=== PATIENT | female | born 1980 | race Asian ===

== ENCOUNTER 2020-03-13 23:43 | Emergency (ER) | payer BC, SELFPAY ==
[2020-03-13 23:44] VITALS: BP 131/59; PULSE 74; RESP 16; TEMP 37.5; O2SAT 100; BMI 22.2
--- NOTE | 2020-03-14 00:18 | CT_ITS ---
EXAMINATION: CT ABDOMEN AND PELVIS WITHOUT CONTRAST CLINICAL INFORMATION: Periumbilical right lower quadrant pain COMPARISON: None TECHNIQUE: Multidetector volumetric imaging was performed from the superior aspect of the liver through the pubic symphysis. Sagittal and coronal reformatted images were obtained on the technologist's workstation. This CT examination was performed using dose optimization techniques as appropriate, variously including the following: *Automated exposure control *Adjustment of mA and/or kV according to patient size (this includes techniques or standardized protocols for targeted exams where dose is matched to indication/reason for exam; i.e. extremities or head) *Use of iterative reconstruction technique DLP: 292 mGy-cm FINDINGS: LUNG BASES: The visualized lung bases are unremarkable. LIVER, GALLBLADDER, AND BILIARY TREE: The liver is normal in size, shape, and attenuation. No focal hepatic lesion or biliary ductal dilatation is present. The gallbladder is unremarkable with no evidence of radiopaque gallstones, gallbladder wall thickening, or obvious pericholecystic inflammatory changes. PANCREAS: Unremarkable. SPLEEN: Unremarkable. ADRENAL GLANDS: Unremarkable. KIDNEYS AND URETERS: The kidneys are normal in size, shape, and attenuation. No hydronephrosis, hydroureter, or calculi seen. No perinephric stranding. BLADDER: Unremarkable. GASTROINTESTINAL TRACT: The small and large bowel are unremarkable. The appendix is unremarkable. No free fluid or free air is seen. ABDOMINAL WALL: No significant hernia is appreciated. LYMPH NODES: No lymphadenopathy is seen, though assessment is limited in the absence of intravenous contrast. VASCULAR: Unremarkable. PELVIC VISCERA: Unremarkable. OSSEOUS STRUCTURES: Degenerative disc disease is noted at L5-S1. IMPRESSION: No acute findings identified in the abdomen/pelvis. Normal appendix.
[2020-03-14 00:24] VITALS: BP 117/65; PULSE 74; RESP 18; TEMP 36.8; O2SAT 100
[2020-03-14] MEDS: 0.9 % Sodium Chloride 1,000 ML 999 ML IVCONT (00:38)
[2020-03-14] MEDS: Morphine Sulfate 4 MG/ML CARTRIDGE IVPUSH (00:38)
[2020-03-14] MEDS: ondansetron HCL 4 MG/2 ML VIAL IVPUSH (00:38)
[2020-03-14 00:45] LABS: MANUAL DIFF FLAG NO
[2020-03-14 00:49] LABS: Basophils Absolute Auto 0.1 X10*3/uL (0.0-0.2); Basophils Percent Auto 0.6 % (0-2); Eosinophils Absolute Auto 0.4 X10*3/uL (0.0-0.4); Eosinophils Percent Auto 4.9 % (0-4); Hematocrit 37.2 % (37-47); Hemoglobin 12.5 g/dl (12.0-16.0); Imm Gran Abs Auto 0.02 X10*3/uL (0.00-0.03); Imm Gran Pct Auto 0.3 % (0.0-0.4); Lymphocytes Absolute Auto 2.2 X10*3/uL (1.2-4.9); Lymphocytes Percent Auto 27.7 % (20-40); Mean Corpuscular HGB Conc 33.6 g/dl (31.0-35.0); Mean Corpuscular Hemoglobin 28.1 pg (27.0-33.0); Mean Corpuscular Volume 83.6 fL (80-98); Mean Platelet Volume 11.2 fL (9.4-12.3); Monocytes Absolute Auto 0.5 X10*3/uL (0.1-1.2); Monocytes Percent Auto 6.4 % (2-11); Neutrophils Absolute Auto 4.7 X10*3/uL (2.0-8.3); Neutrophils Percent Auto 60.1 % (45-73); Platelet Count 193 X10*3/uL (160-400); Red Blood Count 4.45 X10*6/uL (4.20-5.50); Red Cell Distribution Width 12.1 % (11.0-16.0); White Blood Count 7.8 X10*3/uL (4.8-10.8)
--- NOTE | 2020-03-14 01:10 | ED_ITS ---
HPI - Abdominal Pain General Chief Complaint: Abdominal Pain Stated Complaint: NAUSEA/VOMITING Time Seen by Provider: 03/14/20 00:11 Source: patient Mode of arrival: ambulatory Limitations: no limitations History of Present Illness HPI narrative: Patient comes to the emergency room complaining of abdominal pain. Patient states it started in the periumbilical area, now radiating towards the right lower quadrant. Patient states she has not been able to eat due to Pain and is not hungry either. Patient has had multiple episodes of diarrhea and nausea, no vomiting. Patient denies fever. Patient states it hu rts when she walks MD elicited complaint: abdominal pain Onset (ago): day(s) Pain Consistency: constant Location: periumbilical and RLQ Severity: severe Quality: aching Related Data Home Medications Medication Instructions Recorded Confirmed albuterol sulfate 2.5 mg INHALATION Q4-6H PRN 02/26/20 02/26/20 albuterol sulfate 90 mcg/actuation 2 puff INHALATION Q6H PRN 02/26/20 02/26/20 aerosol inhaler fluticasone propionate 250 1 inh INHALATION BID 02/26/20 02/26/20 mcg/actuation blister powder for inhalation ipratropium 0.5 mg-albuterol 3 mg 3 ml INHALATION Q6-8H PRN 02/26/20 02/26/20 (2.5 mg base)/3 mL nebulization soln norethindrone (contraceptive) 0.35 0.35 mg PO DAILY 02/26/20 02/26/20 mg tablet omeprazole 40 mg capsule,delayed 40 mg PO DAILY 02/26/20 02/26/20 release tramadol 50 mg tablet 50 mg PO TID PRN 02/26/20 02/26/20 Allergies Allergy/AdvReac Type Severity Reaction Status Date / Time acetaminophen [Tylenol] Allergy Unknown Unknown Verified 03/13/20 23:54 amoxicillin Allergy Unknown Unknown Verified 03/13/20 23:54 ibuprofen [Advil] Allergy Unknown Unknown Verified 03/13/20 23:54 paroxetine [Paxil] Allergy Unknown Unknown Verified 03/13/20 23:54 Review of Systems Review of Systems Constitutional : No Weight loss, No Fever, No Chills, No Night Sweats, No Fatigue, No Malaise ENT/Mouth : No Hearing loss, No Ear Pain, No Nasal Congestion, No Sinus Pain, No Hoarseness, No sore throat, No Rhinorrhea, No Swallowing Difficulty Eyes: No Eye Pain, No Swelling, No Redness, No Foreign Body, No Discharge, No Vision Changes Cardiovascular : No Chest Pain, No SOB, No Dyspnea on Exertion, No Orthopnea, No Edema, No Palpitations Respiratory : No Cough, No Sputum, No Wheezing, No Smoke Exposure, No Dyspnea Gastrointestinal : complaining of nausea, diarrhea, periumbilical and right lower quadrant pain. Denies vomiting Genitourinary : no irregular bleeding, No Dysuria, No Urinary Frequency, No Hematuria, No Urinary Incontinence, No Urgency, No Flank Pain, No Urinary Flow Changes, No Hesitancy Musculoskeletal : No joint pain, No Myalgias, No Joint Swelling Skin : No Skin Lesions, No rash Neuro : No Weakness, No Numbness, No Paresthesias, No Loss of Consciousness, No Dizziness, No Headache Psych : No Anxiety/Panic, No Depression, No SI/HI/AH/VH, No Social Issues, Heme/Lymph: No Bruising, No Bleeding,No Lymphadenopathy Endocrine : No Polyuria, No Polydipsia, No Temperature Intolerance Physical Exam Vital Signs: Vital Signs: Vital Signs Temp Pulse Resp BP Pulse Ox 03/14/20 00:24 98.3 F 74 18 117/65 100 03/13/20 23:44 99.5 F 74 16 131/59 L 100 Body Mass Index 22.2 Appearance: Alert. Oriented X3. No acute distress. Eyes: Pupils equal, round and reactive to light. ENT: Pharynx normal. Neck: Normal inspection. Neck supple. No lymph nodes noted. No crepitus CVS: Normal heart rate and rhythm. Pulses normal. Normal S1 and S2 Respiratory: No respiratory distress. Breath sounds normal. No Wheezing. No rales Abdomen: Soft tender to palpation over the right lower quadrant periumbilical area, No rigidity. No distention. good BS x4 Skin: Skin warm and dry. Normal skin color. Normal skin turgor. Extremities: No lower extremity edema. No lower extremity edema. No Lacerations. No Rash Neuro: Oriented X 3. No motor deficit. No sensory deficit. Moving all extermities. No slurred speech. Course Reevaluation(s) Reevaluation #1: patient overall feeling better, patient abdominal pain minor, patient able to walk better without significant pain. No vomiting no nausea or diarrhea. MDM - Abdominal Pain MDM Narrative Medical decision making narrative: I discussed the labs and imaging with the patient, at this time, appendicitis is not suspected Lab Data Result diagrams: 03/14/20 00:03/14/20 00:26 Labs: Lab Results 03/14/20 03/14/20 03/14/20 Range/Units 00: 00:26 00:26 WBC 7.8 (4.8-10.8) X10*3/uL RBC 4.45 (4.20-5.50) X10*6/uL Hgb 12.5 (12.0-16.0) g/dl Hct 37.2 (37-47) % MCV 83.6 (80-98) fL MCH 28.1 (27.0-33.0) pg MCHC 33.6 (31.0-35.0) g/dl RDW 12.1 (11.0-16.0) % Plt Count 193 (160-400) X10*3/uL MPV 11.2 (9.4-12.3) fL Immature Gran % (Auto) 0.3 (0.0-0.4) % Neut % (Auto) 60.1 (45-73) % Lymph % (Auto) 27.7 (20-40) % [place] % (Auto) 6.4 (2-11) % Eos % (Auto) 4.9 H (0-4) % Baso % (Auto) 0.6 (0-2) % Lymph # (Auto) 2.2 (1.2-4.9) X10*3/uL [place]ole # (Auto) 0.5 (0.1-1.2) X10*3/uL Eos # (Auto) 0.4 (0.0-0.4) X10*3/uL Baso # (Auto) 0.1 (0.0-0.2) X10*3/uL Abs Immat Gran (auto) 0.02 (0.00-0.03) X10*3/uL Absolute Neuts (auto) 4.7 (2.0-8.3) X10*3/uL Absolute Nucleated RBC 0.000 (0.0-0.012) X10*3/uL Nucleated RBC % (auto) 0.0 (0.0-0.2) /100WBC Sodium 141 (135-145) mmol/L Potassium 3.9 (3.3-5.1) mmol/l Chloride 109 H (96-108) mmol/L Carbon Dioxide 24 (22-29) mmol/L Anion Gap 12 (12-20) BUN 15 (9-16) mg/dL Creatinine 0.86 (0.5-1.4) mg/dL Estim Creat Clear Calc 61.8 Estimated GFR > 60 Random Glucose 82 (60-115) mg/dL Calcium 8.8 (8.4-10.2) mg/dL Total Bilirubin 0.2 (0.0-1.0) mg/dL Direct Bilirubin < 0.2 (0.0-0.5) mg/dL AST 14 (5-31) U/L ALT 8 (0-31) U/L Alkaline Phosphatase 56 (39-117) U/L Total Protein 6.5 (6.5-8.0) g/dL Albumin 4.1 (3.5-5.0) g/dL Lipase 19 (8-78) U/L Beta HCG, Quant < 2 mIU/mL Urine Color Urine Appearance Urine pH (5.0-8.0) Ur Specific [place] (1.005-1.025) Urine Protein (NEG-TRACE) MG/DL Urine Glucose (UA) (NEG) MG/DL Urine Ketones (NEG) MG/DL Urine Blood (NEG) Urine Nitrite (NEG) Ur Leukocyte Esterase (NEG) 03/14/20 Range/Units 01:18 WBC (4.8-10.8) X10*3/uL RBC (4.20-5.50) X10*6/uL Hgb (12.0-16.0) g/dl Hct (37-47) % MCV (80-98) fL MCH (27.0-33.0) pg MCHC (31.0-35.0) g/dl RDW (11.0-16.0) % Plt Count (160-400) X10*3/uL MPV (9.4-12.3) fL Immature Gran % (Auto) (0.0-0.4) % Neut % (Auto) (45-73) % Lymph % (Auto) (20-40) % Toole % (Auto) (2-11) % Eos % (Auto) (0-4) % Baso % (Auto) (0-2) % Lymph # (Auto) (1.2-4.9) X10*3/uL [place]ole # (Auto) (0.1-1.2) X10*3/uL Eos # (Auto) (0.0-0.4) X10*3/uL Baso # (Auto) (0.0-0.2) X10*3/uL Abs Immat Gran (auto) (0.00-0.03) X10*3/uL Absolute Neuts (auto) (2.0-8.3) X10*3/uL Absolute Nucleated RBC (0.0-0.012) X10*3/uL Nucleated RBC % (auto) (0.0-0.2) /100WBC Sodium (135-145) mmol/L Potassium (3.3-5.1) mmol/l Chloride (96-108) mmol/L Carbon Dioxide (22-29) mmol/L Anion Gap (12-20) BUN (9-16) mg/dL Creatinine (0.5-1.4) mg/dL Estim Creat Clear Calc Estimated GFR Random Glucose (60-115) mg/dL Calcium (8.4-10.2) mg/dL Total Bilirubin (0.0-1.0) mg/dL Direct Bilirubin (0.0-0.5) mg/dL AST (5-31) U/L ALT (0-31) U/L Alkaline Phosphatase (39-117) U/L Total Protein (6.5-8.0) g/dL Albumin (3.5-5.0) g/dL Lipase (8-78) U/L Beta HCG, Quant mIU/mL Urine Color YELLOW Urine Appearance CLEAR Urine pH 5.5 (5.0-8.0) Ur Specific [place] >= 1.030 H (1.005-1.025) Urine Protein NEG (NEG-TRACE) MG/DL Urine Glucose (UA) NEG (NEG) MG/DL Urine Ketones NEG (NEG) MG/DL Urine Blood NEG (NEG) Urine Nitrite NEG (NEG) Ur Leukocyte Esterase NEG (NEG) Imaging Data CT scan - abdomen: Radiologist's impression: KIDNEYS AND URETERS: The kidneys are normal in size, shape, and attenuation. No hydronephrosis, hydroureter, or calculi seen. No perinephric stranding. BLADDER: Unremarkable. GASTROINTESTINAL TRACT: The small and large bowel are unremarkable. The appendix is unremarkable. No free fluid or free air is seen. ABDOMINAL WALL: No significant hernia is appreciated. LYMPH NODES: No lymphadenopathy is seen, though assessment is limited in the absence of intravenous contrast. Discharge Plan Discharge Clinical Impression: Abdominal pain Qualifiers: Abdominal location: right lower quadrant Qualified Code(s): R10.31 - Right lower quadrant pain Patient Disposition: Home, Self-Care Instructions: Jose Gz (ED), Abdominal Pain (ED) Additional Instructions: if you have any worsening pain, any new symptoms, please return to emergency room or call 911. Prescriptions: No Action Flovent Diskus 250 mcg/actuation blister with device 1 inh inhalation BID RF: 0 albuterol sulfate [Ventolin HFA] 90 mcg/actuation HFA aerosol inhaler 2 puff inhalation Q6H PRNRF: 0 albuterol sulfate 2.5 mg /3 mL (0.083 %) solution for nebulization 2.5 mg inhalation Q4-6H PRNRF: 0 omeprazole 40 mg capsule,delayed release(DR/EC) 40 mg PO DAILY RF: 0 tramadol 50 mg tablet 50 mg PO TID PRNRF: 0 ipratropium-albuterol 0.5 mg-3 mg(2.5 mg base)/3 mL solution for nebulization 3 ml inhalation Q6-8H PRNRF: 0 norethindrone (contraceptive) [Ortho Micronor] 0.35 mg tablet 0.35 mg PO DAILY RF: 0 PMFSH Past Medical History Medical History Asthma IBS (irritable bowel syndrome) Migraines Social History Social History Alcohol intake: never Smoked in Last 30 Days: No Use of substances other than those prescribed or required for medical reasons: No Advance Directives: No Advance Directives Information Provided: No
[2020-03-14 01:11] LABS: Anion Gap 12 (12-20); Blood Urea Nitrogen 15 mg/dL (9-16); Calcium 8.8 mg/dL (8.4-10.2); Carbon Dioxide 24 mmol/L (22-29); Chloride 109 mmol/L (96-108); Creatinine Clr Calc Pharmacy 61.8; Estimated Glomerular Filt Rate > 60; Glucose Random 82 mg/dL (60-115); Potassium 3.9 mmol/l (3.3-5.1); Sodium 141 mmol/L (135-145)
[2020-03-14 01:12] LABS: Alanine Aminotransferase 8 U/L (0-31); Albumin Level 4.1 g/dL (3.5-5.0); Alkaline Phosphatase 56 U/L (39-117); Aspartate Amino Transferase 14 U/L (5-31); Bilirubin Direct < 0.2 mg/dL (0.0-0.5); Bilirubin Total 0.2 mg/dL (0.0-1.0); Lipase 19 U/L (8-78); Total Protein 6.5 g/dL (6.5-8.0)
[2020-03-14 01:18] LABS: HCG Quantitative < 2 mIU/mL
[2020-03-14 01:31] LABS: Glucose Urine UA NEG (NEG); Leukocyte Esterase Urine NEG (NEG); Nitrite Urine NEG (NEG); PH 5.5 (5.0-8.0); Specific Gravity - Urine >= 1.030 (1.005-1.025); Urine Blood NEG (NEG); Urine Ketones NEG (NEG); Urine Protein NEG (NEG-TRACE)
[2020-03-14 01:33] LABS: Appearance Urine CLEAR; Color Urine YELLOW
[2020-03-14] MEDS: HYDROmorphone HCl 1 MG/ML SYRINGE IVPUSH (02:18)
[2020-03-14 02:53] VITALS: BP 123/77; PULSE 80; RESP 16
== END 2020-03-14 03:06 | disposition home or self-care (01) ==
PROVIDERS: Emergency Provider Emergency Medicine; PCP Nurse Practitioner Family
DX: R10.31 Right lower quadrant pain (principal); Z79.899 Other long term (current) drug therapy
CPT/HCPCS: 36415; 74176; 80048; 80076; 81003; 83690; 84702; 85025; 96361; 96374; 96375; 99284; J1170; J2270; J2405

== ENCOUNTER 2020-03-25 14:33 | Emergency (ER) | payer BC, MEDICAID, SELFPAY ==
[2020-03-25 15:27] VITALS: BP 120/73; PULSE 88; RESP 16; TEMP 37.1; O2SAT 98; BMI 22.4
--- NOTE | 2020-03-25 15:45 | ECG_ITS ---
Test Reason : SOB Blood Pressure : / mmHG Vent. Rate : 114 BPM Atrial Rate : 114 BPM P-R Int : 112 ms QRS Dur : 086 ms QT Int : 342 ms P-R-T Axes : 082 076 036 degrees QTc Int : [address] depression in Inferior leads Lateral leads Abnormal ECG No previous ECGs available Referred By: Chalo Heck Electronically Signed By:BÁRBARA DEXTER MD
--- NOTE | 2020-03-25 15:45 | XR_ITS ---
EXAMINATION: XR CHEST CLINICAL INFORMATION: Shortness of breath COMPARISON: None TECHNIQUE: 2 views of the chest were obtained. FINDINGS: No significant abnormality is noted involving the heart, lungs, mediastinum, bony thorax or soft tissues. XR/XR chest 2V IMPRESSION: Unremarkable examination.
--- NOTE | 2020-03-25 15:45 | US_ITS ---
EXAMINATION: US VENOUS ULTRASOUND WITH DOPPLER LOWER EXTREMITY, LEFT CLINICAL INFORMATION: Left lower extremity pain COMPARISON: None TECHNIQUE: Ultrasound of the deep veins is performed from the hip to the calf with compression sonography and color and pulse Doppler assessment. Spectral analysis with color-flow imaging is performed. FINDINGS: There is normal venous compression and respiratory variation and augmented flow. The visualized common femoral vein, superficial femoral vein, profunda femoral vein, popliteal vein, and the trifurcation region shows no evidence of deep venous thrombosis. There is no significant popliteal fossa cyst. If the patient's symptoms persist, followup ultrasound in 5 days 7 days might be of value to exclude proximal propagation from a non-visualized calf vein. US/US venous duplex LE LT IMPRESSION: No DVT demonstrated in the left lower extremity.
--- NOTE | 2020-03-25 15:51 | ED.ASTHMA ---
HPI - Asthma General Chief Complaint: Asthma Stated Complaint: RAPID HEART BEAT SOB CHEST PAIN Time Seen by Provider: 03/25/20 15:45 History of Present Illness HPI Narrative: 40 year old woman comes into the ER today with shortness of breath, palpitations and LEFT LE posterior pain. Does have a h/o Asthma, has nebulizer at home, has been doing her own treatments, not working. Noticed today when she stood up that her left LE was hurting, has worsened throughout the day, now with worsening pain with ambulation. Denies N/V/F/C, DENIES any Covid-19 exposure complaint: shortness of breath and wheezing Onset (ago): day(s) (1-2) Severity: moderate Context: none known Associated symptoms: chest pain and other (Palpitations, left lower extremity pain) Asthma History: childhood onset Treatments Prior to Arrival: inhaled bronchodilator Related Data Current Asthma Therapy: inhaled bronchodilator and other (has home nebulizer) Home Medications Medication Instructions Recorded Confirmed albuterol sulfate 2.5 mg INHALATION Q4-6H PRN 02/26/20 02/26/20 albuterol sulfate 90 mcg/actuation 2 puff INHALATION Q6H PRN 02/26/20 02/26/20 aerosol inhaler fluticasone propionate 250 1 inh INHALATION BID 02/26/20 02/26/20 mcg/actuation blister powder for inhalation ipratropium 0.5 mg-albuterol 3 mg 3 ml INHALATION Q6-8H PRN 02/26/20 02/26/20 (2.5 mg base)/3 mL nebulization soln norethindrone (contraceptive) 0.35 0.35 mg PO DAILY 02/26/20 02/26/20 mg tablet omeprazole 40 mg capsule,delayed 40 mg PO DAILY 02/26/20 02/26/20 release tramadol 50 mg tablet 50 mg PO TID PRN 02/26/20 02/26/20 Allergies Allergy/AdvReac Type Severity Reaction Status Date / Time acetaminophen [Tylenol] Allergy Unknown Unknown Verified 03/13/20 23:54 amoxicillin Allergy Unknown Unknown Verified 03/13/20 23:54 ibuprofen [Advil] Allergy Unknown Unknown Verified 03/13/20 23:54 paroxetine [Paxil] Allergy Unknown Unknown Verified 03/13/20 23:54 Review of Systems Constitutional: Constitutional: Denies body ache(s), Denies chills, Reports fatigue, Denies fever(s), Denies frequent falls, Denies headache(s), Denies malaise and Denies weakness Eyes: Eyes: Denies change in vision, Denies itchy eyes, Denies other visual disturbances, Denies eye pain and Denies requires corrective lenses ENT: Reports Normal hearing present, Denies halitosis, Denies change in voice, Denies dental pain, Denies dysphagia, Denies dizziness, Denies headache(s), Denies hearing loss, Denies nasal discharge, Reports neck mass (FIRM MASS NOTED UNDER RIGHT EAR AT TMJ, TENDER TO PALPATION. NO ERYTHEMA), Reports neck pain, Denies sinus pressure, Denies sore throat and Denies throat swelling Cardiovascular: Cardiovascular: Denies chest pain, Denies Epigastric Pain, Denies syncope, Denies leg edema, Denies lightheadedness, Reports dyspnea, Reports dyspnea on exertion and Reports other (palipiatations, racing heart ) Respiratory: Respiratory: Denies chest congestion, Reports cough, Reports dyspnea, Reports dyspnea on exertion and Reports wheezing Gastrointestinal: Gastrointestinal: Denies abdominal pain, Denies change in bowel habits, Denies constipation, Denies dysphagia, Denies diarrhea, Denies nausea and Denies vomiting Genitourinary: Genitourinary: Denies urinary frequency, Denies dysuria, Denies flank pain and Denies urinary incontinence Musculoskeletal: Musculoskeletal: Denies abnormal gait, Denies back pain, Denies myalgias, Denies deformity, Denies arthralgias, Denies muscle weakness, Reports neck pain, Denies stiffness and Denies tingling Integumentary/Breasts: Skin/Breast: Denies swelling, Denies pruritus, Denies lesions, Denies nail changes, Denies erythema, Denies rash, Denies sores and Denies unusual bruising Neurologic: Reports Normal hearing present, Reports Abnormal speech present, Denies abnormal gait, Denies dizziness, Denies syncope, Denies frequent falls, Denies headache(s), Denies memory loss, Denies tingling and Denies weakness Psychiatric: Psychiatric: Denies anxiety, Denies depression, Denies irritability and Denies memory loss Endocrine: Endocrine: Reports fatigue Hematologic/Lymphatic: Hematologic/Lymphatic: Denies easy bleeding, Denies easy bruising and Denies lymphadenopathy Allergic/Immunologic: Allergic/Immunologic: Denies itchy eyes, Denies throat swelling and Reports wheezing [facility] Past Medical History Medical History Asthma 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 Esophageal dilatation IBS (irritable bowel syndrome) Migraines Surgical History H/O dilation and curettage H/O shoulder surgery Social History Social History Alcohol intake: never Advance Directives: No Advance Directives Information Provided: No Physical Exam Vital Signs: Vital Signs: Vital Signs Temp Pulse Resp BP Pulse Ox 03/25/20 18:08 96 142/73 H 03/25/20 17:39 98.2 F 102 H 18 119/73 100 03/25/20 15:27 98.7 F 88 16 120/73 98 Body Mass Index 22.4 Const: General: cooperative, healthy appearing, comfortable, no acute distress, well developed, alert, awake and well groomed Nutritional Appearance: average body habitus Orientation/consciousness: patient oriented x3 Limitations: no limitations HENMT: Head: Yes normal to inspection Ears: hearing grossly normal bilaterally, external ears normal, TM's normal bilaterally, mastoids normal and other (FROM MASS NOTED AT TMJ AREA, TENDER TO PALPATION. NO ERYTHEMA, NO DRAINAGE) Eyes: General: appearance normal, both eyes and all related structures Neck: Neck: Yes normal visual inspection, Yes full ROM, Yes no lymphadenopathy, Yes no meningeal signs, Yes trachea midline and Yes supple Thyroid: Thyroid normal Lymphatic: no lymphadenopathy noted Chest: Chest palpation & inspection: normal inspection of the chest and normal palpation of entire chest wall Resp: Effort & Inspection: normal respiratory effort, able to speak in complete sentences, Actively coughing and respiratory distress Auscultation: clear to auscultation bilaterally and wheezes expiratory wheezes, upper bilaterally and posterior Cardio: Rate: regular rate Rhythm: regular rhythm GI: Inspection: Yes normal to inspection : General: Yes no CVA tenderness Back/Spine/Pelvis: Back: no CVA tenderness Cervical Spine: normal cervical lordosis and cervical ROM normal Thoracic/Lumbar Spine: thoracic and lumbar spine normal to inspection Skin: General skin exam: no rashes or lesions noted Lesions: no lesions Rashes: no rashes Neuro: General: patient oriented x3 and no meningeal signs Cranial nerves: Yes Normal hearing present Cognition (Neuro): normal cognition Speech: Abnormal speech present Gait exam (Neuro): Normal gait present Motor exam (neuro): 5/5 motor strength present throughout Sensory Exam: Normal double simultaneous stimulation for sensation Extrem: General: Yes normal to inspection, Yes no pedal edema and Yes calf tenderness (lLEFT Posterior) Psych: Appearance: grossly normal Mental Status: mental status grossly normal Speech and movement: Normal speech and movement present Affect: normal affect Attitude: cooperative Thought process: Normal thought process present Thought content: Normal thought content present Insight: Good insight present (Psych) Judgement: Good judgement present (Psych) Course Course Course Narrative: Evaluated for Shortness of breath, left LE posterior pain and racing heart. No COVID-19 exposure, no significant cough, no fevers. Reevaluation(s) Time: 18:21 Reevaluation #2: CXR, Doppler US and Labs all normal. Reassurance provided. Resp TX pending. Will give Clonidine and prednisone to see if anxiety and chest tightness can be alleviated. MDM - Asthma Lab Data Result diagrams: 03/25/20 16:28 03/25/20 16:28 Labs: Lab Results 03/25/20 03/25/20 03/25/20 Range/Units 16:28 16:28 16:28 WBC 9.9 (4.8-10.8) X10*3/uL RBC 4.28 (4.20-5.50) X10*6/uL Hgb 12.0 (12.0-16.0) g/dl Hct 35.7 L (37-47) % MCV 83.4 (80-98) fL MCH 28.0 (27.0-33.0) pg MCHC 33.6 (31.0-35.0) g/dl RDW 12.2 (11.0-16.0) % Plt Count 242 D (160-400) X10*3/uL MPV 10.7 (9.4-12.3) fL Immature Gran % (Auto) 0.3 (0.0-0.4) % Neut % (Auto) 82.9 H (45-73) % Lymph % (Auto) 11.7 L (20-40) % Baker % (Auto) 4.8 (2-11) % Eos % (Auto) 0.1 (0-4) % Baso % (Auto) 0.2 (0-2) % Lymph # (Auto) 1.2 (1.2-4.9) X10*3/uL Baker # (Auto) 0.5 (0.1-1.2) X10*3/uL Eos # (Auto) 0.0 (0.0-0.4) X10*3/uL Baso # (Auto) 0.0 (0.0-0.2) X10*3/uL Abs Immat Gran (auto) 0.03 (0.00-0.03) X10*3/uL Absolute Neuts (auto) 8.2 (2.0-8.3) X10*3/uL Absolute Nucleated RBC 0.000 (0.0-0.012) X10*3/uL Nucleated RBC % (auto) 0.0 (0.0-0.2) /100WBC PT 14.1 H (10.8-13.0) SEC INR 1.2 H (0.9-1.1) Sodium 139 (135-145) mmol/L Potassium 4.1 (3.3-5.1) mmol/l Chloride 107 (96-108) mmol/L Carbon Dioxide 24 (22-29) mmol/L Anion Gap 12 (12-20) BUN 17 H (9-16) mg/dL Creatinine 0.78 (0.5-1.4) mg/dL Estim Creat Clear Calc 68.2 Estimated GFR > 60 Random Glucose 102 (60-115) mg/dL Calcium 8.4 (8.4-10.2) mg/dL Imaging Data [address] [address] Ultrasound Report Signed Patient: Deanna Vargas#: [id number] : 1980Acct:[id number] Age/Sex: 40 / FADM Date: 03/25/20 Loc: .ED Attending Dr: Ordering Physician: BIRD MARIE Date of Service: 03/25/20 Procedure(s): US venous duplex LE LT Accession Number(s): [id number] cc: BIRD MARIE~ EXAMINATION: US VENOUS ULTRASOUND WITH DOPPLER LOWER EXTREMITY, LEFT CLINICAL INFORMATION: Left lower extremity pain COMPARISON: None TECHNIQUE: Ultrasound of the deep veins is performed from the hip to the calf with compression sonography and color and pulse Doppler assessment. Spectral analysis with color-flow imaging is performed. FINDINGS: There is normal venous compression and respiratory variation and augmented flow. The visualized common femoral vein, superficial femoral vein, profunda femoral vein, popliteal vein, and the trifurcation region shows no evidence of deep venous thrombosis. There is no significant popliteal fossa cyst. If the patient's symptoms persist, followup ultrasound in 5 days 7 days might be of value to exclude proximal propagation from a non-visualized calf vein. US/US venous duplex LE LT IMPRESSION: No DVT demonstrated in the left lower extremity. 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 NO DVT ECG Data ECG interpretation date: 03/25/20 ECG interpretation time: 16:50 Discharge Plan Discharge Clinical Impression: Asthma with acute exacerbation Patient Disposition: Home, Self-Care Additional Instructions: Rest, no exertion fo0r 2-3 days Continue to use home nebulizer Follow up with your PCP in 3-5 days is still not feeling well Tyl and or IBU for any discomfort Prescriptions: No Action Flovent Diskus 250 mcg/actuation blister with device 1 inh inhalation BID RF: 0 albuterol sulfate [Ventolin HFA] 90 mcg/actuation HFA aerosol inhaler 2 puff inhalation Q6H PRNRF: 0 albuterol sulfate 2.5 mg /3 mL (0.083 %) solution for nebulization 2.5 mg inhalation Q4-6H PRNRF: 0 omeprazole 40 mg capsule,delayed release(DR/EC) 40 mg PO DAILY RF: 0 tramadol 50 mg tablet 50 mg PO TID PRNRF: 0 ipratropium-albuterol 0.5 mg-3 mg(2.5 mg base)/3 mL solution for nebulization 3 ml inhalation Q6-8H PRNRF: 0 norethindrone (contraceptive) [Ortho Micronor] 0.35 mg tablet 0.35 mg PO DAILY RF: 0 Interventions: ED Discharge Assessment Last Done: 03/25/20 18:47 Discharge Date/Time: 03/25/20 18:48
--- NOTE | 2020-03-25 16:01 | PC.NURSE ---
pt taken to us via wheelchair
[2020-03-25] MEDS: Albuterol/Iprat 2.5/0.5MG 3 ML AMPUL.NEB INHALE (16:22)
[2020-03-25 16:43] LABS: MANUAL DIFF FLAG NO
[2020-03-25 16:44] LABS: Basophils Percent Auto 0.2 % (0-2); Eosinophils Percent Auto 0.1 % (0-4); Hematocrit 35.7 % (37-47); Imm Gran Abs Auto 0.03 X10*3/uL (0.00-0.03); Imm Gran Pct Auto 0.3 % (0.0-0.4); Lymphocytes Absolute Auto 1.2 X10*3/uL (1.2-4.9); Lymphocytes Percent Auto 11.7 % (20-40); Mean Corpuscular HGB Conc 33.6 g/dl (31.0-35.0); Mean Corpuscular Volume 83.4 fL (80-98); Mean Platelet Volume 10.7 fL (9.4-12.3); Monocytes Absolute Auto 0.5 X10*3/uL (0.1-1.2); Monocytes Percent Auto 4.8 % (2-11); Neutrophils Absolute Auto 8.2 X10*3/uL (2.0-8.3); Neutrophils Percent Auto 82.9 % (45-73); Platelet Count 242 X10*3/uL (160-400); Red Blood Count 4.28 X10*6/uL (4.20-5.50); Red Cell Distribution Width 12.2 % (11.0-16.0); White Blood Count 9.9 X10*3/uL (4.8-10.8)
[2020-03-25 16:49] LABS: INTERNATIONAL NORM RATIO 1.2 (0.9-1.1); Prothrombin Time 14.1 SEC (10.8-13.0)
[2020-03-25 17:19] LABS: Anion Gap 12 (12-20); Blood Urea Nitrogen 17 mg/dL (9-16); Calcium 8.4 mg/dL (8.4-10.2); Carbon Dioxide 24 mmol/L (22-29); Chloride 107 mmol/L (96-108); Creatinine Clr Calc Pharmacy 68.2; Estimated Glomerular Filt Rate > 60; Glucose Random 102 mg/dL (60-115); Potassium 4.1 mmol/l (3.3-5.1); Sodium 139 mmol/L (135-145)
[2020-03-25 17:39] VITALS: BP 119/73; PULSE 102; RESP 18; TEMP 36.8; O2SAT 100
[2020-03-25] MEDS: predniSONE 20 MG TABLET 60 MG PO (17:50)
[2020-03-25 18:08] VITALS: BP 142/73; PULSE 96
[2020-03-25] MEDS: cloNIDine HCL 0.1 MG TABLET PO (18:08)
[2020-03-25 19:13] LABS: Amphetamine Screen Urine Not Detected (Not Detect); Barbiturates, Urine Not Detected (Not Detect); Benzodiazepines Screen Urine POSITIVE (Not Detect); Cannabinoid Screen Urine Not Detected (Not Detect); Cocaine Screen Urine Not Detected (Not Detect); Opiate Screen Urine Not Detected (Not Detect); Phencyclidine Screen Urine Not Detected (Not Detect)
== END 2020-03-25 18:48 | disposition home or self-care (01) ==
PROVIDERS: Physician Assistant Medical; Emergency Provider Emergency Medicine; PCP Nurse Practitioner Family
DX: J45.901 Unspecified asthma with (acute) exacerbation (principal); R00.2 Palpitations; R60.0 Localized edema; M79.662 Pain in left lower leg; M79.661 Pain in right lower leg; Z79.899 Other long term (current) drug therapy; Z20.828 Contact with and (suspected) exposure to other viral communicable diseases
CPT/HCPCS: 36415; 71046; 80048; 80307; 85025; 85610; 93005; 93971; 99283; 99284

== ENCOUNTER 2020-04-07 18:33 | Observation (INO) | payer BC, SELFPAY ==
[2020-04-07 18:47] VITALS: BP 132/73; PULSE 120; RESP 24; TEMP 36.9; O2SAT 100; BMI 24.3
--- NOTE | 2020-04-07 19:09 | XR_ITS ---
EXAMINATION: XR CHEST CLINICAL INFORMATION: Shortness of breath COMPARISON: 03/25/2020 TECHNIQUE: Frontal view of the chest was obtained. FINDINGS: No significant abnormality is noted involving the heart, lungs, mediastinum, bony thorax or soft tissues. XR/XR chest 1V IMPRESSION: Unremarkable examination.
--- NOTE | 2020-04-07 19:09 | ECG_ITS ---
Test Reason : UPPER RES Blood Pressure : / mmHG Vent. Rate : 131 BPM Atrial Rate : 131 BPM P-R Int : 088 ms QRS Dur : 082 ms QT Int : 334 ms P-R-T Axes : 055 070 052 degrees QTc Int : 493 ms Sinus tachycardia with short IL Nonspecific ST abnormality RSR' or QR pattern in V1 suggests right ventricular conduction delay Abnormal ECG When compared with ECG of 25-MAR-2020 16:50, Nonspecific T wave abnormality has replaced inverted T waves in Inferior leads T wave inversion less evident in Anterior leads Referred By: Laura Green Electronically Signed By:BÁRBARA DEXTER MD
[2020-04-07] MEDS: Magnesium Sulfate/H2O 2 GM/50 ML PIGGYBACK IV (19:37)
[2020-04-07] MEDS: 0.9 % Sodium Chloride 500 ML 999 ML IVCONT (19:37)
[2020-04-07] MEDS: methylPREDNISolone Sod Succ/PF 125 MG/2 ML VIAL IVPUSH (19:37)
[2020-04-07 19:42] LABS: MANUAL DIFF FLAG NO
[2020-04-07 19:53] LABS: Basophils Percent Auto 0.6 % (0-2); Eosinophils Absolute Auto 0.2 X10*3/uL (0.0-0.4); Eosinophils Percent Auto 2.6 % (0-4); Hematocrit 37.3 % (37-47); Hemoglobin 12.7 g/dl (12.0-16.0); Imm Gran Abs Auto 0.01 X10*3/uL (0.00-0.03); Imm Gran Pct Auto 0.1 % (0.0-0.4); Lymphocytes Absolute Auto 1.8 X10*3/uL (1.2-4.9); Lymphocytes Percent Auto 25.3 % (20-40); Mean Corpuscular Hemoglobin 28.8 pg (27.0-33.0); Mean Corpuscular Volume 84.6 fL (80-98); Mean Platelet Volume 11.2 fL (9.4-12.3); Monocytes Absolute Auto 0.4 X10*3/uL (0.1-1.2); Neutrophils Absolute Auto 4.8 X10*3/uL (2.0-8.3); Neutrophils Percent Auto 66.4 % (45-73); Platelet Count 197 X10*3/uL (160-400); Red Blood Count 4.41 X10*6/uL (4.20-5.50); Red Cell Distribution Width 12.8 % (11.0-16.0); White Blood Count 7.3 X10*3/uL (4.8-10.8)
[2020-04-07 20:01] LABS: Anion Gap 16 (12-20); Blood Urea Nitrogen 17 mg/dL (9-16); Calcium 8.9 mg/dL (8.4-10.2); Carbon Dioxide 21 mmol/L (22-29); Chloride 108 mmol/L (96-108); Creatinine Clr Calc Pharmacy 62.7; Estimated Glomerular Filt Rate > 60; Glucose Random 106 mg/dL (60-115); Potassium 3.3 mmol/l (3.3-5.1); Sodium 142 mmol/L (135-145)
[2020-04-07] MEDS: Albuterol Sulfate (0.083%) 2.5 MG/3 ML VIAL.NEB 10 MG INHALE (20:06)
[2020-04-07 20:16] LABS: Troponin-I High Sensitivity < 3.5 ng/L (<3.5-17.0)
[2020-04-07 20:17] VITALS: BP 117/50; PULSE 124; RESP 24; RESP 25; O2SAT 100
[2020-04-07] MEDS: 0.9 % Sodium Chloride 1,000 ML 999 ML IVCONT (21:55)
[2020-04-07] MEDS: guaiFEN/Codeine SF 200/20/10ML 10 ML LIQUID PO (21:59)
[2020-04-07] MEDS: Lidocaine HCl Viscous 2 % 15 ML SOLUTION MUCOUS MEM (22:00)
[2020-04-07] MEDS: Albuterol Sulfate (0.083%) 2.5 MG/3 ML VIAL.NEB 5 MG INHALE (22:03)
[2020-04-07 22:31] VITALS: BP 106/50; PULSE 144; TEMP 36.7
[2020-04-07 22:39] VITALS: RESP 16
[2020-04-07] MEDS: Morphine Sulfate 2 MG/ML CARTRIDGE IVPUSH ×2 (22:39→23:43)
--- NOTE | 2020-04-07 22:45 | CT_ITS ---
EXAMINATION: CT CHEST WITHOUT CONTRAST CLINICAL INFORMATION: Shortness of breath COMPARISON: Chest x-ray 04/07/2020 TECHNIQUE: Multidetector volumetric CT imaging of the chest was done. Axial MIP volume rendering provided. Sagittal and coronal reformatted images were obtained. This CT examination was performed using dose optimization techniques as appropriate, variously including the following: *Automated exposure control *Adjustment of mA and/or kV according to patient size (this includes techniques or standardized protocols for targeted exams where dose is matched to indication/reason for exam; i.e. extremities or head) *Use of iterative reconstruction technique DLP: 165 mGy-cm FINDINGS: LUNGS: The lungs are clear with no evidence of inflammation or nodules. MEDIASTINUM: The mediastinum is normal. No mediastinal mass or significant lymphadenopathy. No pericardial effusion. PLEURA: There is no pleural effusion. No pleural mass or thickening. AXILLA: No lymphadenopathy. UPPER ABDOMEN: Unremarkable. OSSEOUS STRUCTURES: Unremarkable. CT/CT chest wo con IMPRESSION: No acute abnormality of the chest.
[2020-04-07] MEDS: LORazepam 2 MG/ML VIAL 0.5 MG IVPUSH (22:59)
[2020-04-07 23:51] LABS: Influenza A PCR NEGATIVE (Negative); Influenza B PCR NEGATIVE (Negative); Resp Syncy Virus RNA Qual PCR NEGATIVE (Negative); SARS COV2 PCR INHOUSE NEGATIVE (Negative)
[2020-04-08] VITALS (8 sets, daily range): BP systolic 101–134; BP diastolic 50–74; PULSE 117–130; RESP 18–24; TEMP 36.2–37; O2SAT 99–100; BMI 22.7
--- NOTE | 2020-04-08 | ECG_ITS ---
Test Reason : CHEST SHEY Blood Pressure : / mmHG Vent. Rate : 142 BPM Atrial Rate : 142 BPM P-R Int : 126 ms QRS Dur : 070 ms QT Int : 274 ms P-R-T Axes : 066 076 024 degrees QTc Int : 421 ms Sinus tachycardia with occasional Premature ventricular complexes Nonspecific ST abnormality Abnormal ECG Heart rate has increased [id number] RSR' or QR pattern in V1 suggests right ventricular conduction delay is no longer Present ST less depressed in Anterior leads Referred By: Osbaldo Dang Electronically Signed By:BÁRBARA DEXTER MD
--- NOTE | 2020-04-08 00:47 | ED.ASTHMA ---
HPI - Asthma General Chief Complaint: Upper Respiratory Symptoms Stated Complaint: Asthma Time Seen by Provider: 04/07/20 19:09 Source: patient Mode of arrival: ambulatory Limitations: no limitations History of Present Illness HPI Narrative: 40-year-old female with past medical history of asthma presents with asthma exacerbation. She has been using her asthma inhalers and nebulizer treatments over the past several days with poor effect. At this time she is tachypneic, unable to speak in complete sentences, coughing, Diaphoretic and has audible wheezing. she does not describe any fevers or chills but she does state to have night sweats over the past several days. She does have palpitations as she has been using quite a bit of her albuterol over the past several days. She denies chest pain, abdominal pain, abdominal distention, dysuria, hematuria, edema, dizziness, lightheadedness, nausea, vomiting, diarrhea and constipation. She does not ever report having hospitalization or intubation for asthma exacerbation MD complaint: asthma attack , shortness of breath and wheezing Onset (ago): day(s) (3) Severity: moderate Associated symptoms: dry cough Asthma History: childhood onset Treatments Prior to Arrival: inhaled bronchodilator Related Data Current Asthma Therapy: inhaled bronchodilator Home Medications Medication Instructions Recorded Confirmed albuterol mcg INHALATION 04/07/20 albuterol sulfate 2 puff INHALATION Q4-6H PRN 04/07/20 04/07/20 omeprazole 40 mg PO DAILY 04/07/20 04/07/20 Allergies Allergy/AdvReac Type Severity Reaction Status Date / Time acetaminophen [Tylenol] Allergy Unknown Unknown Verified 03/13/20 23:54 amoxicillin Allergy Unknown Unknown Verified 03/13/20 23:54 ibuprofen [Advil] Allergy Unknown Unknown Verified 03/13/20 23:54 paroxetine [Paxil] Allergy Unknown Unknown Verified 03/13/20 23:54 Review of Systems Review of Systems: Constitutional: No Fever, No Chills ENT/Mouth: No Hoarseness, No sore throat, No Rhinorrhea Eyes: No Redness, No Discharge, No Vision Changes Cardiovascular: No Chest Pain, positive SOB, positive Dyspnea on Exertion, No Edema Respiratory: positive Cough, No Sputum, positive Wheezing, Gastrointestinal: No Nausea, No Vomiting, No Diarrhea, No abdominal Pain Genitourinary: No Dysuria, No Hematuria Musculoskeletal: No joint pain, No Myalgias Skin: No rash Neuro: No Weakness, No Numbness, No Headache Psych: No anxiety, depression Heme/Lymph: No Bruising, No Bleeding Endocrine: No Polyuria, No Polydipsia Yes all other systems are reviewed and are negative [facility] Past Medical History Attestation statement: The following information was validated with the patient. 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 Oriented X3. moderate respiratory distress. Eyes: Pupils equal, round and reactive to light. ENT: Pharynx normal. Neck: Normal inspection. Neck supple. CVS: tachycardic Pulses bilaterally equal Respiratory: tachypneic, wheezing, poor air flow to all lobes Abdomen: Soft and nontender. Skin: Skin warm and slightly diaphoretic. Normal skin color. Normal skin turgor. Extremities: No lower extremity edema. Neuro: No motor deficit. No sensory deficit. Course Course Course Narrative: 40-year-old female presents with asthma exacerbation. Plan of care is for hour long nebulizer treatment, chest x-ray, magnesium supplementation, Solu-Medrol, and IV fluids. CBC, Chem 7, chest x-ray, and magnesium level pending. Hour long neb open up her lungs she does have some wheezing, continues to cough, we will order 30 minutes neb treatment. Tachycardia still continues Which is likely to be from the albuterol use. Labs are unremarkable, COVID-19 and upper respiratory panel still pending. Patient is complaining of chest soreness from coughing, plan is for morphine 4 mg IV, Robitussin AC and viscous lidocaine. Patient continues to cough, will order CT scan of the chest to rule out pneumonia , bronchitis, bronchiectasis, pneumonitis. CT scan of the chest negative for acute findings. Patient is unable to ambulate short distances secondary to shortness of breath. Patient respiration rate up into the 30s on minimal exertion. Discussion with hospitalist regarding plan of care. Plan is to admit for asthma exacerbation. Consultations Consultation #1: Kirstin Time: 23:30 [facility] - Asthma Differential Diagnosis Differential diagnosis: Likely Acute exacerbation, Status asthmaticus, Pneumonia, ARDS and Pneumothorax Medical Records Attestation: I reviewed the patient's medical records. Lab Data Attestation: I reviewed the patient's lab results. Result diagrams: 04/07/20 19:24 04/07/20 19:00 Labs: Lab Results 04/07/20 04/07/20 04/07/20 Range/Units 19:00 19:00 19:24 WBC 7.3 (4.8-10.8) X10*3/uL RBC 4.41 (4.20-5.50) X10*6/uL Hgb 12.7 (12.0-16.0) g/dl Hct 37.3 (37-47) % MCV 84.6 (80-98) fL MCH 28.8 (27.0-33.0) pg MCHC 34.0 (31.0-35.0) g/dl RDW 12.8 (11.0-16.0) % Plt Count 197 (160-400) X10*3/uL MPV 11.2 (9.4-12.3) fL Immature Gran % (Auto) 0.1 (0.0-0.4) % Neut % (Auto) 66.4 (45-73) % Lymph % (Auto) 25.3 (20-40) % [place] % (Auto) 5.0 (2-11) % Eos % (Auto) 2.6 (0-4) % Baso % (Auto) 0.6 (0-2) % Lymph # (Auto) 1.8 (1.2-4.9) X10*3/uL [place] # (Auto) 0.4 (0.1-1.2) X10*3/uL Eos # (Auto) 0.2 (0.0-0.4) X10*3/uL Baso # (Auto) 0.0 (0.0-0.2) X10*3/uL Abs Immat Gran (auto) 0.01 (0.00-0.03) X10*3/uL Absolute Neuts (auto) 4.8 (2.0-8.3) X10*3/uL Absolute Nucleated RBC 0.000 (0.0-0.012) X10*3/uL Nucleated RBC % (auto) 0.0 (0.0-0.2) /100WBC Sodium 142 (135-145) mmol/L Potassium 3.3 (3.3-5.1) mmol/l Chloride 108 (96-108) mmol/L Carbon Dioxide 21 L (22-29) mmol/L Anion Gap 16 (12-20) BUN 17 H (9-16) mg/dL Creatinine 0.93 (0.5-1.4) mg/dL Estim Creat Clear Calc 62.7 Estimated GFR > 60 Random Glucose 106 (60-115) mg/dL Calcium 8.9 (8.4-10.2) mg/dL Troponin I High Sens < 3.5 (<3.5-17.0) ng/L Coronavirus (PCR) (Negative) Influenza Type A (PCR) (Negative) Influenza Type B (PCR) (Negative) RSV RNA Qual (PCR) (Negative) 04/07/20 Range/Units 23:04 WBC (4.8-10.8) X10*3/uL RBC (4.20-5.50) X10*6/uL Hgb (12.0-16.0) g/dl Hct (37-47) % MCV (80-98) fL MCH (27.0-33.0) pg MCHC (31.0-35.0) g/dl RDW (11.0-16.0) % Plt Count (160-400) X10*3/uL MPV (9.4-12.3) fL Immature Gran % (Auto) (0.0-0.4) % Neut % (Auto) (45-73) % Lymph % (Auto) (20-40) % [place] % (Auto) (2-11) % Eos % (Auto) (0-4) % Baso % (Auto) (0-2) % Lymph # (Auto) (1.2-4.9) X10*3/uL [place] # (Auto) (0.1-1.2) X10*3/uL Eos # (Auto) (0.0-0.4) X10*3/uL Baso # (Auto) (0.0-0.2) X10*3/uL Abs Immat Gran (auto) (0.00-0.03) X10*3/uL Absolute Neuts (auto) (2.0-8.3) X10*3/uL Absolute Nucleated RBC (0.0-0.012) X10*3/uL Nucleated RBC % (auto) (0.0-0.2) /100WBC Sodium (135-145) mmol/L Potassium (3.3-5.1) mmol/l Chloride (96-108) mmol/L Carbon Dioxide (22-29) mmol/L Anion Gap (12-20) BUN (9-16) mg/dL Creatinine (0.5-1.4) mg/dL Estim Creat Clear Calc Estimated GFR Random Glucose (60-115) mg/dL Calcium (8.4-10.2) mg/dL Troponin I High Sens (<3.5-17.0) ng/L Coronavirus (PCR) NEGATIVE (Negative) Influenza Type A (PCR) NEGATIVE (Negative) Influenza Type B (PCR) NEGATIVE (Negative) RSV RNA Qual (PCR) NEGATIVE (Negative) Imaging Data Chest x-ray: Attestation: I personally reviewed and interpreted this imaging study as follows: Radiologist's impression: CLINICAL INFORMATION: Shortness of breath COMPARISON: 03/25/2020 TECHNIQUE: Frontal view of the chest was obtained. FINDINGS: No significant abnormality is noted involving the heart, lungs, mediastinum, bony thorax or soft tissues. XR/XR chest 1V IMPRESSION: Unremarkable examination. CT scan - chest: Attestation: I personally reviewed and interpreted this imaging study as follows: Radiologist's impression: FINDINGS: LUNGS: The lungs are clear with no evidence of inflammation or nodules. MEDIASTINUM: The mediastinum is normal. No mediastinal mass or significant lymphadenopathy. No pericardial effusion. PLEURA: There is no pleural effusion. No pleural mass or thickening. AXILLA: No lymphadenopathy. UPPER ABDOMEN: Unremarkable. OSSEOUS STRUCTURES: Unremarkable. CT/CT chest wo con IMPRESSION: No acute abnormality of the chest. ECG Data Attestation: I personally reviewed and interpreted this ECG as follows: ECG interpretation date: 04/07/20 ECG interpretation time: 20:55 Prior ECG tracings: available for review Interpretation: Vent. Rate : 131 BPM Atrial Rate : 131 BPM P-R Int : 088 ms QRS Dur : 082 ms QT Int : 334 ms P-R-T Axes : 055 070 052 degrees QTc Int : 493 ms Sinus tachycardia with short PA Nonspecific ST abnormality Abnormal ECG When compared with ECG of 25-MAR-2020 16:50, Nonspecific T wave abnormality has replaced inverted T waves in Inferior leads T wave inversion less evident in Anterior leads Critical Care Time Critical Care Time Critical Care Time: Yes Total Critical Care Time: 75 Attestation: I have personally provided critical care time exclusive of time spent on separately billable procedures. Time includes review of laboratory data, radiology results, discussion with consultants, and monitoring for potential decompensation. Interventions were performed as documented. Discharge Plan Discharge Clinical Impression: Asthma with acute exacerbation Qualifiers: Asthma severity: moderate Asthma persistence: persistent Qualified Code(s): J45.41 - Moderate persistent asthma with (acute) exacerbation Patient Disposition: Admitted As Inpatient
--- NOTE | 2020-04-08 00:53 | PC.NURSE ---
pt ambulatory to bathroom with steady slow gait. pt needed assistance of wc last trip to the bathroom because of shaking weak legs.
--- NOTE | 2020-04-08 01:42 | PC.NURSE ---
SUGGESTED PT MIGHT BENEFIT FROM TESSALON PEARLS AND LEVALBUTEROL TO FLOOR RN.
[2020-04-08] MEDS: Enoxaparin Sodium 40 MG/0.4 ML SYRINGE SUBCUT (02:21)
[2020-04-08] MEDS: Morphine Sulfate 2 MG/ML CARTRIDGE IVPUSH (02:22)
--- NOTE | 2020-04-08 02:56 | PM.IMHP ---
History of Present Illness Date of Service: 04/08/20 Chief Complaint: shortness of breath this is a 40-year-old female with past medical history of asthma as well as migraine who presents to the hospital with complaints of shortness of breath, cough, and wheezing for the past 1 day. Patient reports that her inhalers did not help, she has difficulty With breathing with minimal exertion. She denies any fever or chills, denies any nausea, vomiting, diarrhea or constipation. Reports that her fiance had a co-worker that was recently tested Positive for COVID, but her fiance does not abuse symptoms. She otherwise denies any travel. She has no urinary symptoms and no lower extremity edema. On arrival to the ED hemodynamically stable With heart rate in the 1 10s to 120, respiratory rate of 24, otherwise satting 100% on room air. Labs unremarkable chest CT negative for any abnormality. 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 If so, by whom?: No Do you feel safe in your current relationship?: Yes Is there a partner from a previous relationship who is making you feel unsafe now?: No Are you made to feel afraid or neglected: No Advance Directives: No Advance Directives Information Provided: Yes Do you have thoughts of harming others: None Do you have a plan to hurt others: No Plan Recently lost weight without trying: No Meds Allergies Allergy/AdvReac Type Severity Reaction Status Date / Time acetaminophen [Tylenol] Allergy Unknown Unknown Verified 03/13/20 23:54 amoxicillin Allergy Unknown Unknown Verified 03/13/20 23:54 ibuprofen [Advil] Allergy Unknown Unknown Verified 03/13/20 23:54 paroxetine [Paxil] Allergy Unknown Unknown Verified 03/13/20 23:54 Home Medications Medication Instructions Recorded Confirmed Type albuterol mcg INHALATION 04/07/20 History albuterol sulfate 2 puff INHALATION Q4-6H PRN 04/07/20 04/07/20 History omeprazole 40 mg PO DAILY 04/07/20 04/07/20 History Physical Exam Vital Signs and Narrative: Vital Signs: Last Vital Signs Temp 98 F 04/08/20 01:38 Pulse 129 H 04/08/20 01:38 Resp 22 H 04/08/20 02:22 BP 118/64 04/08/20 01:38 Pulse Ox 100 04/08/20 01:38 Body Mass Index 22.7 Const: General: cooperative and no acute distress Orientation/consciousness: patient oriented x3 Eyes: General: appearance normal, both eyes and all related structures Pupils: Equal, round and reactive pupils present Resp: Effort & Inspection: normal respiratory effort, able to speak in complete sentences and Actively coughing Auscultation: wheezes Cardio: Rate: regular rate Rhythm: regular rhythm GI: Palpation (GI): Soft to palpation Auscultation: normal bowel sounds Skin: General skin exam: no rashes or lesions noted Neuro: General: patient oriented x3 Cranial nerves: Yes Equal, round and reactive pupils present Cognition (Neuro): normal cognition Extrem: General: Yes normal to inspection and Yes no pedal edema Results Labs CBC and Chem 7: 04/07/20 19:24 04/07/20 19:00 Labs: Laboratory Results - last 24 hr 04/07/20 04/07/20 04/07/20 19:00 19:00 19:24 MCV 84.6 MCH 28.8 MCHC 34.0 RDW 12.8 Plt Count 197 MPV 11.2 Immature Gran % (Auto) 0.1 Neut % (Auto) 66.4 Lymph % (Auto) 25.3 [place] % (Auto) 5.0 Eos % (Auto) 2.6 Baso % (Auto) 0.6 Lymph # (Auto) 1.8 [place] # (Auto) 0.4 Eos # (Auto) 0.2 Baso # (Auto) 0.0 Abs Immat Gran (auto) 0.01 Absolute Neuts (auto) 4.8 Absolute Nucleated RBC 0.000 Nucleated RBC % (auto) 0.0 Anion Gap 16 Estim Creat Clear Calc 62.7 Estimated GFR > 60 Random Glucose 106 Calcium 8.9 Troponin I High Sens < 3.5 Coronavirus (PCR) Influenza Type A (PCR) Influenza Type B (PCR) RSV RNA Qual (PCR) 04/07/20 23:04 MCV MCH MCHC RDW Plt Count MPV Immature Gran % (Auto) Neut % (Auto) Lymph % (Auto) [place] % (Auto) Eos % (Auto) Baso % (Auto) Lymph # (Auto) [place] # (Auto) Eos # (Auto) Baso # (Auto) Abs Immat Gran (auto) Absolute Neuts (auto) Absolute Nucleated RBC Nucleated RBC % (auto) Anion Gap Estim Creat Clear Calc Estimated GFR Random Glucose Calcium Troponin I High Sens Coronavirus (PCR) NEGATIVE Influenza Type A (PCR) NEGATIVE Influenza Type B (PCR) NEGATIVE RSV RNA Qual (PCR) NEGATIVE Imaging Radiologist's Impressions: Impressions Chest X-Ray 04/07/20 19:09 IMPRESSION: Unremarkable examination. Chest CT 04/07/20 22:45 IMPRESSION: No acute abnormality of the chest. Assessment and Plan (1) Asthma with acute exacerbation: Qualifiers: Asthma persistence: persistent Asthma severity: moderate Qualified Code(s): J45.41 - Moderate persistent asthma with (acute) exacerbation Status: Acute (2) Cough: Status: Acute (3) Migraines: Status: Acute this is a 40-year-old female with past medical history of asthma presents to the hospital with dyspnea, wheezing and cough. # Asthma exacerbation - will start with Solu-Medrol, DuoNebs p.r.n. and scheduled - COVID-19 negative, no evidence of pneumonia - other respiratory panel negative # cough - secondary to asthma exacerbation - Robitussin and supportive measures # migraine headaches - reports that active headache at this time, reports that Tylenol does not help - will give her naproxen DVT prophylaxis: Lovenox
[2020-04-08] MEDS: NaPROXEN 500 MG TABLET PO (03:06)
[2020-04-08] MEDS: guaiFENesin DM 100/10/5 ML 5 ML SYRUP PO (03:14)
[2020-04-08] MEDS: Omeprazole 40 MG CAPSULE.DR PO (06:14)
[2020-04-08] MEDS: Albuterol/Iprat 2.5/0.5MG 3 ML AMPUL.NEB INHALE (07:09)
[2020-04-08] MEDS: 0.9 % Sodium Chloride Flush 3 ML SYRINGE IVFLUSH ×2 (08:54→15:56)
--- NOTE | 2020-04-08 10:45 | HO.PM.IMPN ---
Subjective Subjective Date of Service: 04/08/20 Interval History: Dyspnea improved. Very tachycardic. 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 Physical Exam Vital Signs: Vital Signs: Last Vital Signs Temp 97.2 F 04/08/20 08:00 Pulse 130 H 04/08/20 08:00 Resp 20 04/08/20 08:00 BP 101/54 L 04/08/20 08:00 Pulse Ox 99 04/08/20 08:00 Body Mass Index 22.7 Gen: in no acute distress HEENT: sclera anicteric, moist mucus membranes Neck: supple, no goiter Lungs: good air entry bilaterally, soft end-expiratory wheezes Heart: tachycardic in 120s-130s, no murmurs Abd: soft, non-tender, non-distended Ext: no edema Skin: warm/well-perfused Neuro: alert and oriented x3, no focal findings Psych: appropriate affect Objective Data Current Medications Generic Name Dose Route Start Last Admin Trade Name Freq PRN Reason Stop Dose Admin Acetaminophen 650 mg 04/08/20 01:07 Acetaminophen 325 Mg Tablet PO Q6H PRN Pain, Mild (Pain Scale 1-3) Docusate Sodium 100 mg 04/08/20 09:00 04/08/20 08:51 Docusate Sodium 100 Mg Capsule PO Not Given BID RAMON Enoxaparin Sodium 40 mg 04/08/20 02:00 04/08/20 02:21 Enoxaparin Sodium 40 Mg/0.4 Ml Syringe SUBCUT 40 mg Q24H RAMON Administration Guaifenesin/Dextromethorphan 5 ml 04/08/20 02:53 04/08/20 03:14 Guaifenesin Dm 100/10/5 Ml 5 Ml Syrup PO 5 ml Q6H PRN Administration Cough Levalbuterol HCl 1.25 mg 04/08/20 12:00 Levalbuterol Hcl 1.25 Mg/3 Ml Vial.Neb INHALE RQ4H WHILE AWAKE RAMON Levalbuterol HCl 1.25 mg 04/08/20 09:13 Levalbuterol Hcl 1.25 Mg/3 Ml Vial.Neb INHALE Q2H PRN shortness of breath/wheeze Methylprednisolone Sodium Succinate 40 mg 04/08/20 06:00 04/08/20 06:14 Methylprednisolone Sod Succ/Pf 40 Mg/Ml Vial IVPUSH 40 mg Q12H RAMON Administration Omeprazole 40 mg 04/08/20 06:30 04/08/20 06:14 Omeprazole 40 Mg Capsule.Dr PO 40 mg DAILY@0630 RAMON Administration Sodium Chloride 3 ml 04/08/20 08:00 04/08/20 08:54 0.9 % Sodium Chloride Flush 3 Ml Syringe IVFLUSH 3 ml QSHIFT RAMON Administration Labs CBC & Chem 7: 04/07/20 19:24 04/07/20 19:00 Labs: Laboratory Results - last 24 hr 04/07/20 04/07/20 04/07/20 19:00 19:00 19:24 WBC 7.3 RBC 4.41 Hgb 12.7 Hct 37.3 MCV 84.6 MCH 28.8 MCHC 34.0 RDW 12.8 Plt Count 197 MPV 11.2 Immature Gran % (Auto) 0.1 Neut % (Auto) 66.4 Lymph % (Auto) 25.3 [place] % (Auto) 5.0 Eos % (Auto) 2.6 Baso % (Auto) 0.6 Lymph # (Auto) 1.8 [place] # (Auto) 0.4 Eos # (Auto) 0.2 Baso # (Auto) 0.0 Abs Immat Gran (auto) 0.01 Absolute Neuts (auto) 4.8 Absolute Nucleated RBC 0.000 Nucleated RBC % (auto) 0.0 Sodium 142 Potassium 3.3 Chloride 108 Carbon Dioxide 21 L Anion Gap 16 BUN 17 H Creatinine 0.93 Estim Creat Clear Calc 62.7 Estimated GFR > 60 Random Glucose 106 Calcium 8.9 Troponin I High Sens < 3.5 Coronavirus (PCR) Influenza Type A (PCR) Influenza Type B (PCR) RSV RNA Qual (PCR) 04/07/20 23:04 WBC RBC Hgb Hct MCV MCH MCHC RDW Plt Count MPV Immature Gran % (Auto) Neut % (Auto) Lymph % (Auto) [place] % (Auto) Eos % (Auto) Baso % (Auto) Lymph # (Auto) [place] # (Auto) Eos # (Auto) Baso # (Auto) Abs Immat Gran (auto) Absolute Neuts (auto) Absolute Nucleated RBC Nucleated RBC % (auto) Sodium Potassium Chloride Carbon Dioxide Anion Gap BUN Creatinine Estim Creat Clear Calc Estimated GFR Random Glucose Calcium Troponin I High Sens Coronavirus (PCR) NEGATIVE Influenza Type A (PCR) NEGATIVE Influenza Type B (PCR) NEGATIVE RSV RNA Qual (PCR) NEGATIVE Assessment and Plan (1) Asthma with acute exacerbation: Status: Acute Assessment and Plan: hospital d#1 40yo F with asthma admitted for acute exacerbation # tachycardia - switch albuterol to levalbuterol, check D-dimer + TSH # acute asthma exacerbation - steroid burst #2/5, nebulized [place]. no evidence of PNA, COVID-19, or influenza. # VTE ppx - LMWH
[2020-04-08] MEDS: levalbuterol HCL 1.25 MG/3 ML VIAL.NEB INHALE ×3 (10:55→21:37)
[2020-04-08 10:56] LABS: D Dimer < 200 NG/ML
[2020-04-08 13:30] LABS: Glucose Urine UA NEG (NEG); Leukocyte Esterase Urine NEG (NEG); Nitrite Urine NEG (NEG); PH 5.5 (5.0-8.0); Urine Blood 1+ (NEG); Urine Ketones NEG (NEG); Urine Protein NEG (NEG-TRACE)
[2020-04-08 13:39] LABS: Appearance Urine HAZY; Color Urine YELLOW
[2020-04-08 13:51] LABS: Amphetamine Screen Urine Not Detected (Not Detect); Barbiturates, Urine Not Detected (Not Detect); Benzodiazepines Screen Urine Not Detected (Not Detect); Cannabinoid Screen Urine Not Detected (Not Detect); Cocaine Screen Urine Not Detected (Not Detect); Opiate Screen Urine POSITIVE (Not Detect); Phencyclidine Screen Urine Not Detected (Not Detect)
[2020-04-08 14:09] LABS: Squamous Epithelial Cell Urine 1+ /LPF; WBC Urine 0 /HPF (0-4)
[2020-04-08 14:25] LABS: Troponin-I High Sensitivity < 3.5 ng/L (<3.5-17.0)
--- NOTE | 2020-04-08 14:29 | PM.CNCAR ---
History of Present Illness History of Present Illness Date of Consult: April 08, 2020 Requesting physician: Osbaldo Dang Chief complaint: Asthma Narrative: Thank you for inviting us in cardiology consultation on Daja for tachycardia and palpitations. She is a 40-year-old woman admitted with asthma exacerbation, persistent requiring aggressive treatment with bronchodilators. She developed palpitations and subsequent telemetry shows sinus tachycardia up to 160 beats per minute. She says she has been undergoing workup for symptoms of palpitations for some time, seeing Cardiology in [place] and has a Holter monitor currently hooked up. when her heart rate goes high like that she gets chest tightness and discomfort. She also says she gets palpitations when she goes up a flight of stairs associated shortness of breath is not sure this is related to asthma. Symptoms have worsened over the last few days when she was having difficulty controlling her asthma. She also has symptoms of intermittent skipped heartbeats. She is bothered by the symptoms. No lightheadedness, loss of consciousness. Her D-dimer and TSH are within normal limits. She is not ischemic. No febrile episodes or sepsis like syndrome. Metanephrines are pending. Review of Systems Constitutional: Constitutional: Denies body ache(s), Denies chills, Denies fever(s), Reports weight gain and Reports weight loss Eyes: Eyes: Reports no additional eye complaints ENT: Reports system reviewed and no additional complaints, except as documented Cardiovascular: Cardiovascular: Reports chest pain, Reports rapid heart rate and Reports dyspnea on exertion Respiratory: Respiratory: Reports cough, Reports dyspnea on exertion and Reports wheezing Gastrointestinal: Gastrointestinal: Reports no additional gastrointestinal complaints Musculoskeletal: Musculoskeletal: Reports no additional musculoskeletal complaints Neurologic: Reports system reviewed and no additional complaints, except as documented Psychiatric: Psychiatric: Reports no additional psychiatric complaints Hematologic/Lymphatic: Hematologic/Lymphatic: Reports no additional hematologic/lymphatic complaints Allergic/Immunologic: Allergic/Immunologic: Reports no additional allergic/immunologic complaints and Reports wheezing PMFSH Past Medical History Medical History Asthma 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 Esophageal dilatation IBS (irritable bowel syndrome) Migraines Surgical History Surgical History H/O dilation and curettage H/O shoulder surgery Social History Social History Household Members: Other Household Members Other:: boyfriend Housing: Apartment Do you presently have visiting nurse or other home services: No Alcohol intake: never Smoking Status: Never smoker Use of substances other than those prescribed or required for medical reasons: No Currently Displaying Signs/Symptoms of Drug Intoxication Withdrawal: No Have you been hit, kicked, punched, or otherwise hurt by someone within the past year? If so, by whom?: No Do you feel safe in your current relationship?: Yes Is there a partner from a previous relationship who is making you feel unsafe now?: No Are you made to feel afraid or neglected: No Advance Directives: No Advance Directives Information Provided: Yes Do you have thoughts of harming others: None Do you have a plan to hurt others: No Plan Recently lost weight without trying: No Meds Allergies Allergy/AdvReac Type Severity Reaction Status Date / Time acetaminophen [Tylenol] Allergy Unknown Unknown Verified 03/13/20 23:54 amoxicillin Allergy Unknown Unknown Verified 03/13/20 23:54 ibuprofen [Advil] Allergy Unknown Unknown Verified 03/13/20 23:54 paroxetine [Paxil] Allergy Unknown Unknown Verified 03/13/20 23:54 Home Medications Medication Instructions Recorded Confirmed Type albuterol mcg INHALATION 04/07/20 History albuterol sulfate 2 puff INHALATION Q4-6H PRN 04/07/20 04/07/20 History omeprazole 40 mg PO DAILY 04/07/20 04/07/20 History Physical Exam Vital Signs: Vital Signs: Last Vital Signs Temp 97.6 F 04/08/20 12:00 Pulse 128 H 04/08/20 12:00 Resp 20 04/08/20 12:00 BP 118/61 04/08/20 12:00 Pulse Ox 99 04/08/20 12:00 Body Mass Index 22.7 Const: General: cooperative, comfortable, alert and awake; No acute distress Nutritional Appearance: thin Orientation/consciousness: patient oriented x3 HENMT: Head: Yes normal to inspection, Yes normocephalic and Yes atraumatic Eyes: General: appearance normal, both eyes and all related structures Neck: Neck: Yes trachea midline, Yes supple and Yes no JVD Chest: Chest palpation & inspection: normal inspection of the chest Resp: Effort & Inspection: normal respiratory effort Auscultation: no crackles, no rales and no rhonchi Cardio: Palpation: normal PMI Rate: regular rate and tachycardic Rhythm: regular rhythm Heart sounds: S1 normal heart sound present and S2 normal heart sound present GI: Auscultation: normal bowel sounds Skin: General skin exam: no rashes or lesions noted Neuro: General: patient oriented x3 and no focal motor deficits Extrem: General: Yes no clubbing, cyanosis or edema Psych: Appearance: grossly normal Affect: Anxious affect present Results Labs and Meds Result diagrams: 04/07/20 19:24 04/07/20 19:00 Lab results: Laboratory Results - last 24 hr 04/07/20 04/07/20 04/07/20 19:00 19:00 19:24 WBC 7.3 RBC 4.41 Hgb 12.7 Hct 37.3 MCV 84.6 MCH 28.8 MCHC 34.0 RDW 12.8 Plt Count 197 MPV 11.2 Immature Gran % (Auto) 0.1 Neut % (Auto) 66.4 Lymph % (Auto) 25.3 Divide % (Auto) 5.0 Eos % (Auto) 2.6 Baso % (Auto) 0.6 Lymph # (Auto) 1.8 [place] # (Auto) 0.4 Eos # (Auto) 0.2 Baso # (Auto) 0.0 Abs Immat Gran (auto) 0.01 Absolute Neuts (auto) 4.8 Absolute Nucleated RBC 0.000 Nucleated RBC % (auto) 0.0 D-Dimer Sodium 142 Potassium 3.3 Chloride 108 Carbon Dioxide 21 L Anion Gap 16 BUN 17 H Creatinine 0.93 Estim Creat Clear Calc 62.7 Estimated GFR > 60 Random Glucose 106 Calcium 8.9 Troponin I High Sens < 3.5 TSH Urine Color Urine Appearance Urine pH Ur Specific [place] Urine Protein Urine Glucose (UA) Urine Ketones Urine Blood Urine Nitrite Ur Leukocyte Esterase Urine RBC Urine WBC Ur Squamous Epith Cells Urine Bacteria Urine Opiates Screen Ur Barbiturates Screen Ur Phencyclidine Scrn Ur Amphetamines Screen U Benzodiazepines Scrn Urine Cocaine Screen U Marijuana (THC) Screen Coronavirus (PCR) Influenza Type A (PCR) Influenza Type B (PCR) RSV RNA Qual (PCR) 04/07/20 04/08/20 04/08/20 23:04 10:11 10:11 WBC RBC Hgb Hct MCV MCH MCHC RDW Plt Count MPV Immature Gran % (Auto) Neut % (Auto) Lymph % (Auto) Divide % (Auto) Eos % (Auto) Baso % (Auto) Lymph # (Auto) Div[place] # (Auto) Eos # (Auto) Baso # (Auto) Abs Immat Gran (auto) Absolute Neuts (auto) Absolute Nucleated RBC Nucleated RBC % (auto) D-Dimer < 200 Sodium Potassium Chloride Carbon Dioxide Anion Gap BUN Creatinine Estim Creat Clear Calc Estimated GFR Random Glucose Calcium Troponin I High Sens TSH 0.50 Urine Color Urine Appearance Urine pH Ur Specific [place] Urine Protein Urine Glucose (UA) Urine Ketones Urine Blood Urine Nitrite Ur Leukocyte Esterase Urine RBC Urine WBC Ur Squamous Epith Cells Urine Bacteria Urine Opiates Screen Ur Barbiturates Screen Ur Phencyclidine Scrn Ur Amphetamines Screen U Benzodiazepines Scrn Urine Cocaine Screen U Marijuana (THC) Screen Coronavirus (PCR) NEGATIVE Influenza Type A (PCR) NEGATIVE Influenza Type B (PCR) NEGATIVE RSV RNA Qual (PCR) NEGATIVE 04/08/20 04/08/20 04/08/20 13:14 13:14 13:46 WBC RBC Hgb Hct MCV MCH MCHC RDW Plt Count MPV Immature Gran % (Auto) Neut % (Auto) Lymph % (Auto) Divide % (Auto) Eos % (Auto) Baso % (Auto) Lymph # (Auto) Div[place] # (Auto) Eos # (Auto) Baso # (Auto) Abs Immat Gran (auto) Absolute Neuts (auto) Absolute Nucleated RBC Nucleated RBC % (auto) D-Dimer Sodium Potassium Chloride Carbon Dioxide Anion Gap BUN Creatinine Estim Creat Clear Calc Estimated GFR Random Glucose Calcium Troponin I High Sens < 3.5 TSH Urine Color YELLOW Urine Appearance HAZY Urine pH 5.5 Ur Specific [place] 1.010 Urine Protein NEG Urine Glucose (UA) NEG Urine Ketones NEG Urine Blood 1+ H Urine Nitrite NEG Ur Leukocyte Esterase NEG Urine RBC 1-4 Urine WBC 0 Ur Squamous Epith Cells 1+ Urine Bacteria NONE Urine Opiates Screen POSITIVE H Ur Barbiturates Screen Not Detected Ur Phencyclidine Scrn Not Detected Ur Amphetamines Screen Not Detected U Benzodiazepines Scrn Not Detected Urine Cocaine Screen Not Detected U Marijuana (THC) Screen Not Detected Coronavirus (PCR) Influenza Type A (PCR) Influenza Type B (PCR) RSV RNA Qual (PCR) Assessment and Plan (1) Palpitations: Status: Acute See below (2) Sinus tachycardia: Status: Acute palpitations most likely related to sinus tachycardia. There were no arrhythmias noted. Could be related to recent increase in bronchodilators. Agree with switch to Xopenex which is more pulmonary specific bronchodilator to reduce incidence of inappropriate sinus tachycardia. Other possibilities include inappropriate sinus tachycardia versus anxiety predisposition. Her TSH and D-dimer are within normal limits. Metanephrines are pending and she is not anemic. Beta-blockers would not be appropriate therapy in patient with severe asthma and bronchospastic airway disease. Could consider adding long-acting calcium channel minnie if she remains symptomatic for symptom relief with no prognostic benefit with somewhat lower efficacy. If she despite that remained symptomatic could consider adding Corlanor therapy to her regimen. This can all be done as an outpatient. Patient can follow up with her own supervisor mapping (3) Atypical chest pain: Status: Acute atypical chest pain in a young woman with very low risk for coronary artery disease. Most likely associated with elevated heart rate. Could also be due to bronchospastic airway disease. There is no clear evidence of acute coronary syndrome as of now. She has a scheduled stress test coming up with her outpatient supervisor mapping, will continue to pursue that. Likelihood of again acute coronary syndrome or CAD is very low. Patient can be discharged from this perspective with low risk for cardiovascular event. Procedures Abscess I/D Date of Service: 04/08/20
--- NOTE | 2020-04-08 14:39 | PC.NURSE ---
st, ekg done md aware cardiology consult ordered holter monitor remains on weepy has c/o headache and neck pain md aware ice pack given
[2020-04-08] MEDS: LORazepam 2 MG/ML VIAL 0.5 MG IVPUSH (15:55)
[2020-04-08 16:47] LABS: Troponin-I High Sensitivity < 3.5 ng/L (<3.5-17.0)
[2020-04-08] MEDS: VerapamiL HCL SR 120 MG TABLET.ER PO (18:01)
[2020-04-08] MEDS: Docusate Sodium 100 MG CAPSULE PO (21:06)
[2020-04-09] VITALS: BP 117/62; PULSE 121; RESP 20; TEMP 36.4; O2SAT 100
[2020-04-09] MEDS: 0.9 % Sodium Chloride Flush 3 ML SYRINGE IVFLUSH ×2 (00:19→09:59)
[2020-04-09] MEDS: Enoxaparin Sodium 40 MG/0.4 ML SYRINGE SUBCUT (03:02)
--- NOTE | 2020-04-09 03:50 | PC.NURSE ---
Patient with occasional rise in heart rate to 120-130s with ambulation to bathroom. IMC RN watching monitor
[2020-04-09 04:00] VITALS: BP 99/53; PULSE 93; RESP 18; TEMP 36.9; O2SAT 98
[2020-04-09 05:25] LABS: MANUAL DIFF FLAG NO
[2020-04-09 05:30] LABS: Basophils Percent Auto 0.1 % (0-2); Hematocrit 33.3 % (37-47); Imm Gran Abs Auto 0.07 X10*3/uL (0.00-0.03); Imm Gran Pct Auto 0.4 % (0.0-0.4); Lymphocytes Absolute Auto 1.1 X10*3/uL (1.2-4.9); Lymphocytes Percent Auto 6.6 % (20-40); Mean Corpuscular Hemoglobin 27.9 pg (27.0-33.0); Mean Corpuscular Volume 84.5 fL (80-98); Mean Platelet Volume 11.5 fL (9.4-12.3); Monocytes Absolute Auto 0.6 X10*3/uL (0.1-1.2); Monocytes Percent Auto 3.4 % (2-11); Neutrophils Percent Auto 89.5 % (45-73); Platelet Count 190 X10*3/uL (160-400); Red Blood Count 3.94 X10*6/uL (4.20-5.50); Red Cell Distribution Width 13.2 % (11.0-16.0); White Blood Count 16.7 X10*3/uL (4.8-10.8)
[2020-04-09 05:58] LABS: Anion Gap 9 (12-20); Blood Urea Nitrogen 16 mg/dL (9-16); Calcium 8.6 mg/dL (8.4-10.2); Carbon Dioxide 25 mmol/L (22-29); Chloride 111 mmol/L (96-108); Creatinine Clr Calc Pharmacy 66.5; Estimated Glomerular Filt Rate > 60; Glucose Random 134 mg/dL (60-115); Potassium 4.4 mmol/l (3.3-5.1); Sodium 141 mmol/L (135-145)
[2020-04-09] MEDS: Omeprazole 40 MG CAPSULE.DR PO (06:33)
[2020-04-09 08:00] VITALS: BP 116/59; PULSE 97; RESP 20; TEMP 36.3; O2SAT 100
--- NOTE | 2020-04-09 08:47 | MHC.CM.PN ---
Pt reports she lives with her fiance and is fully independent with all care and mobility. Pt has a nebulizer at home she reports is in working order and says she uses it PRN. Pt denies having any home or community services. Pt confirms her PCP is Priscilla Soriano. Pt completed a HCP today naming her fiance, Michoacano Goel ([phone]) as her agent. Observation notice explained and delivered current DC plan is home with no services pt will arrange transportation at DC
[2020-04-09] MEDS: VerapamiL HCL SR 120 MG TABLET.ER PO (09:57)
[2020-04-09] MEDS: HYDROcodone Bit/Acetam 5/325 TABLET 1 TAB PO (09:58)
--- NOTE | 2020-04-09 10:50 | P.DS_ITS ---
DS: Providers Provider Date of admission: 04/08/20 00:07 Primary care physician: Priscilla Soriano NP Consults: 04/08/20 12:51 Consult to Cardiology Routine Consulting Provider: Bashir Us Reason for consultation: Persistent sinus tachycardia, chest pressure DS: Diagnosis Discharge Diagnosis (1) Palpitations: Status: Acute (2) Sinus tachycardia: Status: Acute (3) Atypical chest pain: Status: Acute (4) Asthma with acute exacerbation: Status: Acute DS: Medications Discharge Medications Home Medications: Home Medications Medication Instructions Recorded Confirmed omeprazole 40 mg PO DAILY 04/07/20 04/07/20 Previous Rx's Medication Instructions Recorded levalbuterol tartrate 2 puff INHALATION Q4-6H PRN #15 g 04/09/20 prednisone 40 mg PO DAILY #4 tab 04/09/20 verapamil 120 mg PO DAILY #30 tab 04/09/20 DS: Summary Hospital Course Hospital Course: From the admission history and physical by hospitalist Collette Fulton, 04/08/20: this is a 40-year-old female with past medical history of asthma as well as migraine who presents to the hospital with complaints of shortness of breath, cough, and wheezing for the past 1 day. Patient reports that her inhalers did not help, she has difficulty With breathing with minimal exertion. She denies any fever or chills, denies any nausea, vomiting, diarrhea or constipation. Reports that her fiance had a co-worker that was recently tested Positive for COVID, but her fiance does not abuse symptoms. She otherwise denies any travel. She has no urinary symptoms and no lower extremity edema. On arrival to the ED hemodynamically stable With heart rate in the 1 10s to 120, respiratory rate of 24, otherwise satting 100% on room air. Labs unremarkable chest CT negative for any abnormality. COVID-19 negative The [place] [facility] [place] She was treated with steroid burst and nebulized albuterol for asthma exacerbation with relief of dyspnea and wheezing. Due to persistent sinus tachycardia as high as the 140s with symptomatic palpitations and atypical chest pain, albuterol was changed to levalbuterol and Cardiology was consulted. TSH, D-dimer, and serial hsTn-I were all normal. Plasma metanephrines were sent and are pending at the time of discharge. She is currently undergoing workup with an outpatient post acute care nurse with a Holter monitor and has a cardiac stress test scheduled for 3 days from discharge. She was started on 120 mg of sustained-release verapamil, which should be held 48 hours prior to the stress test. She will follow up with her primary care provider and her post acute care nurse. Time Spent with Patient Time attestation: Total time spent providing and/or coordinating discharge services: 30 Physical Exam Vital Signs: Vital Signs: Last Vital Signs Temp 97.4 F 04/09/20 08:00 Pulse 97 04/09/20 08:00 Resp 20 04/09/20 08:00 BP 116/59 L 04/09/20 08:00 Pulse Ox 100 04/09/20 08:00 Body Mass Index 22.7 Gen: in no acute distress HEENT: sclera anicteric, moist mucus membranes Neck: supple, no goiter Lungs: good air entry bilaterally, soft end-expiratory wheezes Heart: regular rate and rhythm with no murmurs Abd: soft, non-tender, non-distended Ext: no edema Skin: warm/well-perfused Neuro: alert and oriented x3, no focal findings Psych: appropriate affect DS: Data Data Completed and Pending Labs on day of discharge: Laboratory Tests 04/07/20 04/07/20 04/07/20 19:00 19:00 19:24 WBC 7.3 RBC 4.41 Hgb 12.7 Hct 37.3 MCV 84.6 MCH 28.8 MCHC 34.0 RDW 12.8 Plt Count 197 MPV 11.2 Immature Gran % (Auto) 0.1 Neut % (Auto) 66.4 Lymph % (Auto) 25.3 Johnson % (Auto) 5.0 Eos % (Auto) 2.6 Baso % (Auto) 0.6 Lymph # (Auto) 1.8 Johnson # (Auto) 0.4 Eos # (Auto) 0.2 Baso # (Auto) 0.0 Abs Immat Gran (auto) 0.01 Absolute Neuts (auto) 4.8 Absolute Nucleated RBC 0.000 Nucleated RBC % (auto) 0.0 D-Dimer Sodium 142 Potassium 3.3 Chloride 108 Carbon Dioxide 21 L Anion Gap 16 BUN 17 H Creatinine 0.93 Estim Creat Clear Calc 62.7 Estimated GFR > 60 Random Glucose 106 Calcium 8.9 Troponin I High Sens < 3.5 TSH Urine Color Urine Appearance Urine pH Ur Specific [place] Urine Protein Urine Glucose (UA) Urine Ketones Urine Blood Urine Nitrite Ur Leukocyte Esterase Urine RBC Urine WBC Ur Squamous Epith Cells Urine Bacteria Urine Opiates Screen Ur Barbiturates Screen Ur Phencyclidine Scrn Ur Amphetamines Screen U Benzodiazepines Scrn Urine Cocaine Screen U Marijuana (THC) Screen Coronavirus (PCR) Influenza Type A (PCR) Influenza Type B (PCR) RSV RNA Qual (PCR) 04/07/20 04/08/20 04/08/20 23:04 10:11 10:11 WBC RBC Hgb Hct MCV MCH MCHC RDW Plt Count MPV Immature Gran % (Auto) Neut % (Auto) Lymph % (Auto) [place] % (Auto) Eos % (Auto) Baso % (Auto) Lymph # (Auto) [place] # (Auto) Eos # (Auto) Baso # (Auto) Abs Immat Gran (auto) Absolute Neuts (auto) Absolute Nucleated RBC Nucleated RBC % (auto) D-Dimer < 200 Sodium Potassium Chloride Carbon Dioxide Anion Gap BUN Creatinine Estim Creat Clear Calc Estimated GFR Random Glucose Calcium Troponin I High Sens TSH 0.50 Urine Color Urine Appearance Urine pH Ur Specific [place] Urine Protein Urine Glucose (UA) Urine Ketones Urine Blood Urine Nitrite Ur Leukocyte Esterase Urine RBC Urine WBC Ur Squamous Epith Cells Urine Bacteria Urine Opiates Screen Ur Barbiturates Screen Ur Phencyclidine Scrn Ur Amphetamines Screen U Benzodiazepines Scrn Urine Cocaine Screen U Marijuana (THC) Screen Coronavirus (PCR) NEGATIVE Influenza Type A (PCR) NEGATIVE Influenza Type B (PCR) NEGATIVE RSV RNA Qual (PCR) NEGATIVE 04/08/20 04/08/20 04/08/20 13:14 13:14 13:46 WBC RBC Hgb Hct MCV MCH MCHC RDW Plt Count MPV Immature Gran % (Auto) Neut % (Auto) Lymph % (Auto) [place] % (Auto) Eos % (Auto) Baso % (Auto) Lymph # (Auto) [place] # (Auto) Eos # (Auto) Baso # (Auto) Abs Immat Gran (auto) Absolute Neuts (auto) Absolute Nucleated RBC Nucleated RBC % (auto) D-Dimer Sodium Potassium Chloride Carbon Dioxide Anion Gap BUN Creatinine Estim Creat Clear Calc Estimated GFR Random Glucose Calcium Troponin I High Sens < 3.5 TSH Urine Color YELLOW Urine Appearance HAZY Urine pH 5.5 Ur Specific [place] 1.010 Urine Protein NEG Urine Glucose (UA) NEG Urine Ketones NEG Urine Blood 1+ H Urine Nitrite NEG Ur Leukocyte Esterase NEG Urine RBC 1-4 Urine WBC 0 Ur Squamous Epith Cells 1+ Urine Bacteria NONE Urine Opiates Screen POSITIVE H Ur Barbiturates Screen Not Detected Ur Phencyclidine Scrn Not Detected Ur Amphetamines Screen Not Detected U Benzodiazepines Scrn Not Detected Urine Cocaine Screen Not Detected U Marijuana (THC) Screen Not Detected Coronavirus (PCR) Influenza Type A (PCR) Influenza Type B (PCR) RSV RNA Qual (PCR) 04/08/20 04/09/20 04/09/20 16:03 04:40 04:40 WBC 16.7 H RBC 3.94 L Hgb 11.0 L Hct 33.3 L MCV 84.5 MCH 27.9 MCHC 33.0 RDW 13.2 Plt Count 190 MPV 11.5 Immature Gran % (Auto) 0.4 Neut % (Auto) 89.5 H Lymph % (Auto) 6.6 L [place] % (Auto) 3.4 Eos % (Auto) 0.0 Baso % (Auto) 0.1 Lymph # (Auto) 1.1 L [place] # (Auto) 0.6 Eos # (Auto) 0.0 Baso # (Auto) 0.0 Abs Immat Gran (auto) 0.07 H Absolute Neuts (auto) 15.0 H Absolute Nucleated RBC 0.000 Nucleated RBC % (auto) 0.0 D-Dimer Sodium 141 Potassium 4.4 D Chloride 111 H Carbon Dioxide 25 Anion Gap 9 L BUN 16 Creatinine 0.80 Estim Creat Clear Calc 66.5 Estimated GFR > 60 Random Glucose 134 H Calcium 8.6 Troponin I High Sens < 3.5 TSH Urine Color Urine Appearance Urine pH Ur Specific [place] Urine Protein Urine Glucose (UA) Urine Ketones Urine Blood Urine Nitrite Ur Leukocyte Esterase Urine RBC Urine WBC Ur Squamous Epith Cells Urine Bacteria Urine Opiates Screen Ur Barbiturates Screen Ur Phencyclidine Scrn Ur Amphetamines Screen U Benzodiazepines Scrn Urine Cocaine Screen U Marijuana (THC) Screen Coronavirus (PCR) Influenza Type A (PCR) Influenza Type B (PCR) RSV RNA Qual (PCR) ITS Impressions Chest X-Ray 04/07/20 19:09 IMPRESSION: Unremarkable examination. Chest CT 04/07/20 22:45 IMPRESSION: No acute abnormality of the chest. Discharge Plan Discharge Anticipated Discharge Date/Time: 04/09/20 10:40 Patient Disposition: Home, Self-Care Referrals: Priscilla Soriano NP [Primary Care Provider] - Discharge Medications: New verapamil 120 mg Tablet Extended Release 120 mg PO DAILY Qty: 30 RF: 0 prednisone 20 mg tablet 40 mg PO DAILY Qty: 4 RF: 0 levalbuterol tartrate 45 mcg/actuation HFA aerosol inhaler 2 puff inhalation Q4-6H PRN (Reason: shortness of breath or wheezing) Qty: 15 RF: 0 Continued omeprazole 40 mg Capsule,Delayed Release(Dr/Ec) 40 mg PO DAILY RF: 0 Discontinued albuterol 90 mcg/actuation Aerosol INHALATION RF: 0 albuterol sulfate 90 mcg/actuation Hfa Aerosol Inhaler 2 puff INHALATION Q4-6H PRN (Reason: Shortness Of Breath) RF: 0 Discharge Orders: Discharge Order (Routine); Ordered 04/09/20 Ordered By: Osbaldo Dang Diet: advance to usual diet Activity on Discharge: As tolerated Patient Instructions: Chest Pain (DC), Asthma (DC), Tachycardia (ED) Visit Report Forms: Patient Portal Discharge page Care Plan Goals: relief of shortness of breath/wheezing relief of chest pain/palpitations Health Concerns: asthma palpitations Plan of Treatment: take prednisone 40 mg daily for 2 more days (04/10-04/11/20) change albuterol to levalbuterol (less likely to cause tachycardia) start verapamil 120 mg daily. hold it for 48 hours prior to your scheduled cardiac stress test, though. follow up with your primary care doctor and your post acute care nurse
--- NOTE | 2020-04-09 11:06 | MHC.CM.PN ---
pt to dc home today with no services. pt will self arrange transportation
[2020-04-09] MEDS: levalbuterol HCL 1.25 MG/3 ML VIAL.NEB INHALE (11:17)
[2020-04-13 13:41] LABS: Metanephrine, Free 33 pg/mL (<=57); Normetanephrines, Free 109 pg/mL (<=148); Total Metanephrine, Free 142 pg/mL (<=205)
== END 2020-04-09 12:15 | disposition home or self-care (01) ==
LOC: HO.ED 04-08 00:18 → HO.IMC 04-08 00:59
PROVIDERS: Nurse Practitioner Family; Admitting Provider Internal Medicine; Emergency Provider Emergency Medicine; PCP Nurse Practitioner Family; Visit Provider Family Medicine
DX: J45.41 Moderate persistent asthma with (acute) exacerbation (principal); R00.0 Tachycardia, unspecified; R05 Cough; R00.2 Palpitations; I49.8 Other specified cardiac arrhythmias; R07.89 Other chest pain; G43.909 Migraine, unspecified, not intractable, without status migrainosus; Z20.828 Contact with and (suspected) exposure to other viral communicable diseases; Z79.899 Other long term (current) drug therapy
CPT/HCPCS: 0241U; 36415; 71045; 71250; 80048; 80307; 81001; 83835; 84443; 84484; 85025; 85379; 93005; 94640; 94644; 96361; 96365; 96366; 96375; 99219; 99285; 99291; 99292; J1650; J2060; J2270; J2920; J2930; J3475

== ENCOUNTER 2020-06-17 04:06 | Emergency (ER) | payer BC, SELFPAY ==
[2020-06-17 04:23] VITALS: BP 138/69; PULSE 97; RESP 16; TEMP 36.8; O2SAT 98; BMI 22.0
--- NOTE | 2020-06-17 04:33 | ED.GENADULT ---
HPI - General Adult General Chief complaint: General Medical Stated complaint: Abd pain Time Seen by Provider: 06/17/20 04:33 Source: patient Mode of arrival: ambulatory Limitations: no limitations History of Present Illness HPI narrative: dx with COVID 1/2 since then chest pain, abdominal pain that is worsening, has been using INH and neb with minimal relief, has not seen a provider since dx 05/27, reports her abdominal pain and diarrhea is worsening, she has diffuse body aches MD complaint: chest pain/abdominal pain Onset (ago): day(s) () Location: chest and abdomen Radiation: non-radiation Severity: moderate Quality: stabbing Pain Consistency: constant Relieving factors: none Exacerbating factors: none Associated symptoms: cough, fever/chills, headaches, loss of appetite, malaise, nausea/vomiting and weakness Treatments prior to arrival: other (used her INH and neb treatment) Related Data Home Medications Medication Instructions Recorded Confirmed omeprazole 40 mg PO DAILY 04/07/20 04/07/20 Previous Rx's Medication Instructions Recorded levalbuterol tartrate 2 puff INHALATION Q4-6H PRN #15 g 04/09/20 prednisone 40 mg PO DAILY #4 tab 04/09/20 verapamil 120 mg PO DAILY #30 tab 04/09/20 ondansetron 4 mg PO Q8H PRN #20 tab 06/17/20 prednisone 40 mg PO DAILY 5 Days #10 tab 06/17/20 Allergies Allergy/AdvReac Type Severity Reaction Status Date / Time acetaminophen [Tylenol] Allergy Unknown Unknown Verified 03/13/20 23:54 amoxicillin Allergy Unknown Unknown Verified 03/13/20 23:54 ibuprofen [Advil] Allergy Unknown Unknown Verified 03/13/20 23:54 paroxetine [Paxil] Allergy Unknown Unknown Verified 03/13/20 23:54 Review of Systems Review of Systems: Constitutional : No Weight loss, No Fever, No Chills, pos fatigue ENT/Mouth : No sore throat, No Rhinorrhea Eyes: No Eye Pain, No Swelling Cardiovascular : pos Chest Pain, pos SOB, no Dyspnea on Exertion, No Orthopnea, No Edema, No Palpitations Respiratory : pos Cough, No Sputum Gastrointestinal : pos Nausea, pos Vomiting, pos Diarrhea, pos abdominal Pain, No Hematochezia, No Melena Genitourinary : No Dysuria, No Urinary Frequency Musculoskeletal : No joint pain, No Myalgias, No Joint Swelling Skin : No Skin Lesions, No rash Neuro : pos Weakness, No Numbness, No Dizziness, No Headache Psych : No Anxiety/Panic, No Depression Heme/Lymph: No Bruising, No Lymphadenopathy Endocrine : No Polyuria, No Polydipsia All other systems reviewed and are negative [facility] Past Medical History Attestation statement: The following information was validated with the patient. 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 Esophageal dilatation IBS (irritable bowel syndrome) Palpitations Sinus tachycardia Surgical History H/O dilation and curettage H/O shoulder surgery Social History Social History Household Members: Other Housing: Apartment Alcohol intake: never Smoking Status: Never smoker Advance Directives: No Advance Directives Information Provided: No service: No Current occupational status: unemployed Physical Exam Vital Signs: Vital Signs: Last Vital Signs Temp 98.2 F 06/17/20 04:23 Pulse 90 06/17/20 05:02 Resp 16 06/17/20 04:23 BP 138/69 06/17/20 04:23 Pulse Ox 98 06/17/20 04:23 Body Mass Index 22.0 Appearance: Alert. Oriented X3. No acute distress. Eyes: Pupils equal, round and reactive to light. ENT: Pharynx normal. Neck: Normal inspection. Neck supple. CVS: Normal heart rate and rhythm. Pulses normal. Respiratory: No respiratory distress. Breath sounds diminished, dry cough Abdomen: Soft and mild suprapubic ttp, no rebound or guarding Skin: Skin warm and dry. Normal skin color. Normal skin turgor. Extremities: No lower extremity edema. No calf ttp Neuro: Oriented X 3. No motor deficit. No sensory deficit. Course Course Course Narrative: patient c/o suprapubic pain - UA ordered but patient did not give sample - signed out to Dr. Murphy pending UA/ CT scan result Medical Decision Making MDM Narrative Medical decision making narrative: 40 yo female with asthma dx 1/2 with COVID since then recurrent chest pain, abdominal pain, weakness, cough, diarrhea - she states she just isn't getting better, at this time will need labs, IVF, supportive medications, CXR, EKG, ddimer/troponin, CT scan abdomen for colitis. Lab Data Result diagrams: 06/17/20 05:00 06/17/20 05:00 Labs: Lab Results 06/17/20 06/17/20 06/17/20 Range/Units 05:00 05:00 05:00 WBC 8.5 (4.8-10.8) X10*3/uL RBC 4.33 (4.20-5.50) X10*6/uL Hgb 12.0 (12.0-16.0) g/dl Hct 36.2 L (37-47) % MCV 83.6 (80-98) fL MCH 27.7 (27.0-33.0) pg MCHC 33.1 (31.0-35.0) g/dl RDW 12.3 (11.0-16.0) % Plt Count 201 (160-400) X10*3/uL MPV 11.5 (9.4-12.3) fL Immature Gran % (Auto) 0.4 (0.0-0.4) % Neut % (Auto) 82.0 H (45-73) % Lymph % (Auto) 12.0 L (20-40) % [place] % (Auto) 3.9 (2-11) % Eos % (Auto) 1.2 (0-4) % Baso % (Auto) 0.5 (0-2) % Lymph # (Auto) 1.0 L (1.2-4.9) X10*3/uL [place] # (Auto) 0.3 (0.1-1.2) X10*3/uL Eos # (Auto) 0.1 (0.0-0.4) X10*3/uL Baso # (Auto) 0.0 (0.0-0.2) X10*3/uL Abs Immat Gran (auto) 0.03 (0.00-0.03) X10*3/uL Absolute Neuts (auto) 7.0 (2.0-8.3) X10*3/uL Absolute Nucleated RBC 0.000 (0.0-0.012) X10*3/uL Nucleated RBC % (auto) 0.0 (0.0-0.2) /100WBC D-Dimer < 200 NG/ML Hold Blue Top SEE NOTE Sodium 142 (135-145) mmol/L Potassium 4.8 (3.3-5.1) mmol/l Chloride 107 (96-108) mmol/L Carbon Dioxide 23 (22-29) mmol/L Anion Gap 17 (12-20) BUN 18 H (9-16) mg/dL Creatinine 0.86 (0.5-1.4) mg/dL Estim Creat Clear Calc 61.8 Estimated GFR > 60 Random Glucose 114 (60-115) mg/dL Calcium 9.2 D (8.4-10.2) mg/dL Magnesium 2.0 (1.6-2.6) mg/dL Total Bilirubin 0.3 (0.0-1.0) mg/dL Direct Bilirubin 0.2 (0.0-0.5) mg/dL AST 17 (5-31) U/L ALT 13 (0-31) U/L Alkaline Phosphatase 63 (39-117) U/L Troponin I High Sens (<3.5-17.0) ng/L Total Protein 6.7 (6.5-8.0) g/dL Albumin 4.3 (3.5-5.0) g/dL Lipase 19 (8-78) U/L 06/17/20 Range/Units 05:00 WBC (4.8-10.8) X10*3/uL RBC (4.20-5.50) X10*6/uL Hgb (12.0-16.0) g/dl Hct (37-47) % MCV (80-98) fL MCH (27.0-33.0) pg MCHC (31.0-35.0) g/dl RDW (11.0-16.0) % Plt Count (160-400) X10*3/uL MPV (9.4-12.3) fL Immature Gran % (Auto) (0.0-0.4) % Neut % (Auto) (45-73) % Lymph % (Auto) (20-40) % [place] % (Auto) (2-11) % Eos % (Auto) (0-4) % Baso % (Auto) (0-2) % Lymph # (Auto) (1.2-4.9) X10*3/uL [place] # (Auto) (0.1-1.2) X10*3/uL Eos # (Auto) (0.0-0.4) X10*3/uL Baso # (Auto) (0.0-0.2) X10*3/uL Abs Immat Gran (auto) (0.00-0.03) X10*3/uL Absolute Neuts (auto) (2.0-8.3) X10*3/uL Absolute Nucleated RBC (0.0-0.012) X10*3/uL Nucleated RBC % (auto) (0.0-0.2) /100WBC D-Dimer NG/ML Hold Blue Top Sodium (135-145) mmol/L Potassium (3.3-5.1) mmol/l Chloride (96-108) mmol/L Carbon Dioxide (22-29) mmol/L Anion Gap (12-20) BUN (9-16) mg/dL Creatinine (0.5-1.4) mg/dL Estim Creat Clear Calc Estimated GFR Random Glucose (60-115) mg/dL Calcium (8.4-10.2) mg/dL Magnesium (1.6-2.6) mg/dL Total Bilirubin (0.0-1.0) mg/dL Direct Bilirubin (0.0-0.5) mg/dL AST (5-31) U/L ALT (0-31) U/L Alkaline Phosphatase (39-117) U/L Troponin I High Sens < 3.5 (<3.5-17.0) ng/L Total Protein (6.5-8.0) g/dL Albumin (3.5-5.0) g/dL Lipase (8-78) U/L ECG Data Attestation: I personally reviewed and interpreted this ECG as follows: Interpretation: Rate: 102 Rhythm: sinus tachycardia [place]: normal Normal P waves. Normal [place]. Normal QRS complex. ST T wave : normal, no SAV qTC: normal prior studies: no acute ischemia The study has been interpreted contemporaneously by me. . Discharge Plan Discharge Clinical Impression: Abdominal pain Qualifiers: Abdominal location: lower abdomen, unspecified Qualified Code(s): R10.30 - Lower abdominal pain, unspecified Chest pain Qualifiers: Chest pain type: unspecified Qualified Code(s): R07.9 - Chest pain, unspecified Asthma Qualifiers: Asthma severity: mild Asthma persistence: unspecified Asthma complication type: unspecified Qualified Code(s): J45.909 - Unspecified asthma, uncomplicated Instructions: Chest Pain (ED), Abdominal Pain (ED) Additional Instructions: return to ED for any worsening symptoms or concerns Prescriptions: New prednisone 20 mg tablet 40 mg PO DAILY 5 Days Qty: 10 RF: 0 ondansetron 4 mg tablet,disintegrating 4 mg PO Q8H PRN (Reason: nausea and vomiting) Qty: 20 RF: 0 No Action omeprazole 40 mg Capsule,Delayed Release(Dr/Ec) 40 mg PO DAILY RF: 0 verapamil 120 mg Tablet Extended Release 120 mg PO DAILY Qty: 30 RF: 0 prednisone 20 mg tablet 40 mg PO DAILY Qty: 4 RF: 0 levalbuterol tartrate 45 mcg/actuation HFA aerosol inhaler 2 puff inhalation Q4-6H PRN (Reason: shortness of breath or wheezing) Qty: 15 RF: 0 Referrals: Physician,Unknown [Primary Care Provider] - 3 days (PCP if not better) Stand Alone Forms: Work/School Release
--- NOTE | 2020-06-17 04:34 | ECG_ITS ---
Test Reason : ABDOMINAL PAIN Blood Pressure : / mmHG Vent. Rate : 102 BPM Atrial Rate : 102 BPM P-R Int : 118 ms QRS Dur : 078 ms QT Int : 328 ms P-R-T Axes : 070 075 051 degrees QTc Int : 427 ms Sinus tachycardia Otherwise normal ECG When compared with ECG of 08-APR-2020 12:10, Premature ventricular complexes are no longer Present Referred By: Vannessa Elena Electronically Signed By:ZEUS HOPE
--- NOTE | 2020-06-17 04:34 | CT_ITS ---
EXAMINATION: CT ABDOMEN AND PELVIS WITH CONTRAST CLINICAL INFORMATION: Diarrhea, diffuse abdominal pain COMPARISON: 03/14/2020 TECHNIQUE: Multidetector volumetric images were obtained from the superior aspect of the liver through the pubic symphysis following administration 85 mL of Omnipaque 350 intravenous contrast. Sagittal and coronal reformatted images were obtained on the technologist's workstation. Oral contrast: No This CT examination was performed using dose optimization techniques as appropriate, variously including the following: *Automated exposure control *Adjustment of mA and/or kV according to patient size (this includes techniques or standardized protocols for targeted exams where dose is matched to indication/reason for exam; i.e. extremities or head) *Use of iterative reconstruction technique DLP: 354 mGy-cm FINDINGS: LUNG BASES: The visualized lung bases are unremarkable. LIVER, GALLBLADDER, AND BILIARY TREE: The liver is normal in size, shape, and attenuation. No focal hepatic lesion or biliary ductal dilatation is present. The gallbladder is unremarkable with no evidence of radiopaque gallstones, gallbladder wall thickening, or obvious pericholecystic inflammatory changes. PANCREAS: Unremarkable. SPLEEN: Unremarkable. ADRENAL GLANDS: Unremarkable. KIDNEYS AND URETERS: The kidneys are normal in size, shape, and attenuation. No hydronephrosis, hydroureter, or obstructing calculi seen. No perinephric stranding. BLADDER: Unremarkable. GASTROINTESTINAL TRACT: The small and large bowel are unremarkable. The appendix is unremarkable. No free fluid or free air is seen. ABDOMINAL WALL: No significant hernia is appreciated. LYMPH NODES: Normal. VASCULAR: Unremarkable. PELVIC VISCERA: Unremarkable. OSSEOUS STRUCTURES: Degenerative disc disease noted at L5-S1. CT/CT abdomen pelvis w con IMPRESSION: No acute findings identified in the abdomen/pelvis.
--- NOTE | 2020-06-17 04:35 | XR_ITS ---
EXAMINATION: XR CHEST CLINICAL INFORMATION: Chest pain COMPARISON: 04/07/2020 TECHNIQUE: Frontal view of the chest was obtained. FINDINGS: The lungs are clear with no focal consolidation. No evidence of pneumothorax, pulmonary edema, or pleural effusions. The cardiomediastinal silhouette is unremarkable. No acute osseous findings. XR/XR chest 1V IMPRESSION: No acute cardiopulmonary findings.
[2020-06-17 05:02] VITALS: PULSE 90; O2SAT 99
[2020-06-17 05:05] LABS: Basophils Percent Auto 0.5 % (0-2); Eosinophils Absolute Auto 0.1 X10*3/uL (0.0-0.4); Eosinophils Percent Auto 1.2 % (0-4); Hematocrit 36.2 % (37-47); Imm Gran Abs Auto 0.03 X10*3/uL (0.00-0.03); Imm Gran Pct Auto 0.4 % (0.0-0.4); MANUAL DIFF FLAG NO; Mean Corpuscular HGB Conc 33.1 g/dl (31.0-35.0); Mean Corpuscular Hemoglobin 27.7 pg (27.0-33.0); Mean Corpuscular Volume 83.6 fL (80-98); Mean Platelet Volume 11.5 fL (9.4-12.3); Monocytes Absolute Auto 0.3 X10*3/uL (0.1-1.2); Monocytes Percent Auto 3.9 % (2-11); Platelet Count 201 X10*3/uL (160-400); Red Blood Count 4.33 X10*6/uL (4.20-5.50); Red Cell Distribution Width 12.3 % (11.0-16.0); White Blood Count 8.5 X10*3/uL (4.8-10.8)
[2020-06-17 05:15] LABS: D Dimer < 200 NG/ML
[2020-06-17] MEDS: 0.9 % Sodium Chloride 1,000 ML 999 ML IVCONT (05:27)
[2020-06-17] MEDS: methylPREDNISolone Sod Succ/PF 125 MG/2 ML VIAL 60 MG IVPUSH (05:28)
[2020-06-17] MEDS: diphenhydrAMINE HCL 50 MG/ML VIAL 25 MG IVPUSH (05:28)
[2020-06-17 05:39] LABS: Alanine Aminotransferase 13 U/L (0-31); Albumin Level 4.3 g/dL (3.5-5.0); Alkaline Phosphatase 63 U/L (39-117); Anion Gap 17 (12-20); Aspartate Amino Transferase 17 U/L (5-31); Bilirubin Direct 0.2 mg/dL (0.0-0.5); Bilirubin Total 0.3 mg/dL (0.0-1.0); Blood Urea Nitrogen 18 mg/dL (9-16); Calcium 9.2 mg/dL (8.4-10.2); Carbon Dioxide 23 mmol/L (22-29); Chloride 107 mmol/L (96-108); Creatinine Clr Calc Pharmacy 61.8; Estimated Glomerular Filt Rate > 60; Glucose Random 114 mg/dL (60-115); Lipase 19 U/L (8-78); Potassium 4.8 mmol/l (3.3-5.1); Sodium 142 mmol/L (135-145); Total Protein 6.7 g/dL (6.5-8.0)
[2020-06-17 05:42] LABS: Troponin-I High Sensitivity < 3.5 ng/L (<3.5-17.0)
[2020-06-17] MEDS: HYDROcodone/Homat 5/1.5/5 ML 5 ML SYRUP PO (05:52)
[2020-06-17] MEDS: iohexoL 350 MG/ML 100 ML INFUS..BTL 85 ML IV (06:22)
[2020-06-17 07:25] LABS: Glucose Urine UA NEG (NEG); Leukocyte Esterase Urine NEG (NEG); Nitrite Urine NEG (NEG); Specific Gravity - Urine <= 1.005 (1.005-1.025); Urine Blood NEG (NEG); Urine Ketones NEG (NEG); Urine Protein NEG (NEG-TRACE)
[2020-06-17 07:30] LABS: Appearance Urine CLEAR; Color Urine YELLOW
[2020-06-17 07:31] LABS: UPreg QC Valid YES; Urine Pregnancy NEGATIVE (NEGATIVE)
[2020-06-17 07:38] VITALS: PULSE 97; RESP 16; O2SAT 98
== END 2020-06-17 09:20 | disposition home or self-care (01) ==
PROVIDERS: Emergency Provider Emergency Medicine
DX: R10.30 Lower abdominal pain, unspecified (principal); R07.9 Chest pain, unspecified; R10.2 Pelvic and perineal pain; J45.909 Unspecified asthma, uncomplicated; Z79.899 Other long term (current) drug therapy
CPT/HCPCS: 36415; 71045; 74177; 80048; 80076; 81003; 81025; 83690; 83735; 84484; 85025; 85379; 93005; 94640; 96361; 96374; 96375; 99284; J1200; J2930; Q9967

== ENCOUNTER 2020-08-14 11:30 | Emergency (ER) | payer BC, SELFPAY ==
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
[2020-08-14 11:46] VITALS: RESP 18; BMI 21.8
[2020-08-14 12:37] VITALS: BP 126/74; PULSE 102; RESP 17; TEMP 36.6; O2SAT 98
--- NOTE | 2020-08-14 12:38 | PC.NURSE ---
patient a&ox3, very uncooperative refusing to participate in triage, refused vitals-provider is aware- changeover done by security, pt wanting to discharge, currently speaking with psych. sitter at bedside.
--- NOTE | 2020-08-14 13:45 | PC.NURSE ---
pt continued to refuse vitals and wanted to leave, provider is aware
--- NOTE | 2020-08-14 14:00 | PC.NURSE ---
paramedics who brought patient in came back to facility to speak with provider, provider cleared patient to discharge, pt did not wish to wait for discharge papers got dressed and left.
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
== END 2020-08-14 14:00 | disposition home or self-care (01) ==
PROVIDERS: Emergency Provider Emergency Medicine; PCP Nurse Practitioner Family
DX: F33.1 Major depressive disorder, recurrent, moderate (principal); R45.851 Suicidal ideations; F41.1 Generalized anxiety disorder; F43.0 Acute stress reaction; Z79.899 Other long term (current) drug therapy
CPT/HCPCS: 99283

== ENCOUNTER 2020-08-16 23:49 | Emergency (ER) | payer BC, SELFPAY ==
[2020-08-17 00:56] VITALS: BP 107/68; PULSE 72; RESP 16; TEMP 36.7; O2SAT 100; BMI 21.2
[2020-08-17 01:10] LABS: MANUAL DIFF FLAG NO
[2020-08-17 01:11] LABS: Basophils Absolute Auto 0.1 X10*3/uL (0.0-0.2); Basophils Percent Auto 0.8 % (0-2); Eosinophils Absolute Auto 0.3 X10*3/uL (0.0-0.4); Eosinophils Percent Auto 4.4 % (0-4); Hematocrit 41.2 % (37-47); Hemoglobin 13.7 g/dl (12.0-16.0); Imm Gran Abs Auto 0.01 X10*3/uL (0.00-0.03); Imm Gran Pct Auto 0.2 % (0.0-0.4); Lymphocytes Absolute Auto 2.5 X10*3/uL (1.2-4.9); Lymphocytes Percent Auto 41.6 % (20-40); Mean Corpuscular HGB Conc 33.3 g/dl (31.0-35.0); Mean Corpuscular Hemoglobin 27.6 pg (27.0-33.0); Mean Corpuscular Volume 82.9 fL (80-98); Mean Platelet Volume 10.7 fL (9.4-12.3); Monocytes Absolute Auto 0.4 X10*3/uL (0.1-1.2); Monocytes Percent Auto 6.4 % (2-11); Neutrophils Absolute Auto 2.8 X10*3/uL (2.0-8.3); Neutrophils Percent Auto 46.6 % (45-73); Platelet Count 223 X10*3/uL (160-400); Red Blood Count 4.97 X10*6/uL (4.20-5.50); Red Cell Distribution Width 13.1 % (11.0-16.0); White Blood Count 6.1 X10*3/uL (4.8-10.8)
[2020-08-17 01:33] LABS: Alanine Aminotransferase 12 U/L (0-31); Albumin Level 4.5 g/dL (3.5-5.0); Alkaline Phosphatase 61 U/L (39-117); Anion Gap 15 (12-20); Aspartate Amino Transferase 19 U/L (5-31); Bilirubin Total 0.5 mg/dL (0.0-1.0); Blood Urea Nitrogen 18 mg/dL (9-16); Calcium 9.2 mg/dL (8.4-10.2); Carbon Dioxide 27 mmol/L (22-29); Chloride 104 mmol/L (96-108); Creatinine Clr Calc Pharmacy 61.2; Estimated Glomerular Filt Rate > 60; Glucose Random 84 mg/dL (60-115); Lipase 9 U/L (8-78); Potassium 4.1 mmol/L (3.3-5.1); Sodium 142 mmol/L (135-145)
--- NOTE | 2020-08-17 01:44 | ED_ITS ---
HPI - Abdominal Pain General Chief Complaint: Abdominal Pain Stated Complaint: Vomiting blood Time Seen by Provider: 08/17/20 01:44 Source: patient Mode of arrival: ambulatory History of Present Illness HPI narrative: This is a 40-year-old female with history of GERD presents with fatigue and weakness for 1 week and then the development several episodes of vomiting yesterday that she states contain blood and describes hard stool that is black in color. Otherwise, she denies fevers, chills, diarrhea, urinary pain/burning/frequency. Related Data Home Medications Medication Instructions Recorded Confirmed omeprazole 40 mg PO DAILY 04/07/20 04/07/20 Previous Rx's Medication Instructions Recorded levalbuterol tartrate 2 puff INHALATION Q4-6H PRN #15 g 04/09/20 prednisone 40 mg PO DAILY #4 tab 04/09/20 verapamil 120 mg PO DAILY #30 tab 04/09/20 ondansetron 4 mg PO Q8H PRN #20 tab 06/17/20 prednisone 40 mg PO DAILY 5 Days #10 tab 06/17/20 Allergies Allergy/AdvReac Type Severity Reaction Status Date / Time acetaminophen [Tylenol] Allergy Unknown Unknown Verified 03/13/20 23:54 amoxicillin Allergy Unknown Unknown Verified 03/13/20 23:54 ibuprofen [Advil] Allergy Unknown Unknown Verified 03/13/20 23:54 paroxetine [Paxil] Allergy Unknown Unknown Verified 03/13/20 23:54 Review of Systems Review of Systems Pertinent positives and negatives as stated in HPI 10 point review of systems is otherwise negative. Physical Exam Vital Signs: Vital Signs: Last Vital Signs Temp 97.6 F 08/17/20 03:28 Pulse 68 08/17/20 03:28 Resp 6 L 08/17/20 03:28 BP 99/62 08/17/20 03:28 Pulse Ox 99 08/17/20 03:28 Body Mass Index 21.2 VITAL SIGNS: Reviewed. GENERAL: Well developed, well nourished, in no acute distress. HEAD: Normocephalic/atraumatic NOSE: Nares patent bilateral OROPHARYNX: no oral lesions noted, posterior pharynx clear NECK: Supple, no adenopathy LUNGS: Normal breath sounds. No adventitious sounds or accessory muscle use. SpO 2<99> CARDIOVASCULAR: Regular rate and rhythm without noted murmurs ABDOMEN: Soft, non-tender, non-distended with bowel sounds. DARRYL: Noninflamed hemorrhoids noted, rectal vault was empty, no stool on finger as well as no blood, good rectal tone. NEUROLOGIC: Alert and oriented x 4. Course Course Course Narrative: This is a 40-year-old female with history and clinical presentation suggestive of possible trace blood associated with irritation from multiple episodes of nausea and vomiting as there have been no further episodes since earlier in the afternoon. Patient is not tachycardic and review of all lab work is negative for acute findings. All results were discussed with the patient at bedside after tolerating p.o. challenge. She will be discharged in stable condition with recommended follow-up with her primary care provider and to have discussions for GI referral. MDM - Abdominal Pain Lab Data Result diagrams: 08/17/20 01:06 08/17/20 01:06 Labs: Lab Results 08/17/20 08/17/20 08/17/20 Range/Units 01:06 01:06 01:06 WBC 6.1 (4.8-10.8) X10*3/uL RBC 4.97 (4.20-5.50) X10*6/uL Hgb 13.7 (12.0-16.0) g/dl Hct 41.2 (37-47) % MCV 82.9 (80-98) fL MCH 27.6 (27.0-33.0) pg MCHC 33.3 (31.0-35.0) g/dl RDW 13.1 (11.0-16.0) % Plt Count 223 (160-400) X10*3/uL MPV 10.7 (9.4-12.3) fL Immature Gran % (Auto) 0.2 (0.0-0.4) % Neut % (Auto) 46.6 (45-73) % Lymph % (Auto) 41.6 H (20-40) % [place] % (Auto) 6.4 (2-11) % Eos % (Auto) 4.4 H (0-4) % Baso % (Auto) 0.8 (0-2) % Lymph # (Auto) 2.5 (1.2-4.9) X10*3/uL [place] # (Auto) 0.4 (0.1-1.2) X10*3/uL Eos # (Auto) 0.3 (0.0-0.4) X10*3/uL Baso # (Auto) 0.1 (0.0-0.2) X10*3/uL Abs Immat Gran (auto) 0.01 (0.00-0.03) X10*3/uL Absolute Neuts (auto) 2.8 (2.0-8.3) X10*3/uL Absolute Nucleated RBC 0.000 (0.0-0.012) X10*3/uL Nucleated RBC % (auto) 0.0 (0.0-0.2) /100WBC Hold Blue Top SEE NOTE Sodium 142 (135-145) mmol/L Potassium 4.1 (3.3-5.1) mmol/L Chloride 104 (96-108) mmol/L Carbon Dioxide 27 (22-29) mmol/L Anion Gap 15 (12-20) BUN 18 H (9-16) mg/dL Creatinine 1.00 (0.5-1.4) mg/dL Estim Creat Clear Calc 61.2 Estimated GFR > 60 Random Glucose 84 (60-115) mg/dL Calcium 9.2 (8.4-10.2) mg/dL Total Bilirubin 0.5 (0.0-1.0) mg/dL AST 19 (5-31) U/L ALT 12 (0-31) U/L Alkaline Phosphatase 61 (39-117) U/L Total Protein 7.0 (6.5-8.0) g/dL Albumin 4.5 (3.5-5.0) g/dL Lipase 9 (8-78) U/L Urine Color Urine Appearance Urine pH (5.0-8.0) Ur Specific [place] (1.005-1.025) Urine Protein (NEG-TRACE) MG/DL Urine Glucose (UA) (NEG) MG/DL Urine Ketones (NEG) MG/DL Urine Blood (NEG) Urine Nitrite (NEG) Ur Leukocyte Esterase (NEG) Urine Test (NEGATIVE) Stool Occult Blood 08/17/20 08/17/20 08/17/20 Range/Units 01:34 03:20 03:20 WBC (4.8-10.8) X10*3/uL RBC (4.20-5.50) X10*6/uL Hgb (12.0-16.0) g/dl Hct (37-47) % MCV (80-98) fL MCH (27.0-33.0) pg MCHC (31.0-35.0) g/dl RDW (11.0-16.0) % Plt Count (160-400) X10*3/uL MPV (9.4-12.3) fL Immature Gran % (Auto) (0.0-0.4) % Neut % (Auto) (45-73) % Lymph % (Auto) (20-40) % [place] % (Auto) (2-11) % Eos % (Auto) (0-4) % Baso % (Auto) (0-2) % Lymph # (Auto) (1.2-4.9) X10*3/uL [place] # (Auto) (0.1-1.2) X10*3/uL Eos # (Auto) (0.0-0.4) X10*3/uL Baso # (Auto) (0.0-0.2) X10*3/uL Abs Immat Gran (auto) (0.00-0.03) X10*3/uL Absolute Neuts (auto) (2.0-8.3) X10*3/uL Absolute Nucleated RBC (0.0-0.012) X10*3/uL Nucleated RBC % (auto) (0.0-0.2) /100WBC Hold Blue Top Sodium (135-145) mmol/L Potassium (3.3-5.1) mmol/L Chloride (96-108) mmol/L Carbon Dioxide (22-29) mmol/L Anion Gap (12-20) BUN (9-16) mg/dL Creatinine (0.5-1.4) mg/dL Estim Creat Clear Calc Estimated GFR Random Glucose (60-115) mg/dL Calcium (8.4-10.2) mg/dL Total Bilirubin (0.0-1.0) mg/dL AST (5-31) U/L ALT (0-31) U/L Alkaline Phosphatase (39-117) U/L Total Protein (6.5-8.0) g/dL Albumin (3.5-5.0) g/dL Lipase (8-78) U/L Urine Color YELLOW Urine Appearance CLEAR Urine pH 5.5 (5.0-8.0) Ur Specific [place] >= 1.030 H (1.005-1.025) Urine Protein NEG (NEG-TRACE) MG/DL Urine Glucose (UA) NEG (NEG) MG/DL Urine Ketones 15 (NEG) MG/DL Urine Blood NEG (NEG) Urine Nitrite NEG (NEG) Ur Leukocyte Esterase NEG (NEG) Urine Test NEGATIVE (NEGATIVE) Stool Occult Blood Cancelled Discharge Plan Discharge Clinical Impression: Nausea & vomiting Qualifiers: Vomiting type: unspecified Vomiting Intractability: non-intractable Qualified Code(s): R11.2 - Nausea with vomiting, unspecified Patient Disposition: Home, Self-Care Instructions: Acute Nausea and Vomiting (ED) Additional Instructions: Please follow-up with your primary care provider for re-evaluation and discussion regarding referral to Gastroenterology for further workup as well as proposed repeat lab work. Do not hesitate to return to the emergency department should you experience any acute worsening of your symptoms. Prescriptions: No Action omeprazole 40 mg Capsule,Delayed Release(Dr/Ec) 40 mg PO DAILY RF: 0 verapamil 120 mg Tablet Extended Release 120 mg PO DAILY Qty: 30 RF: 0 prednisone 20 mg tablet 40 mg PO DAILY Qty: 4 RF: 0 levalbuterol tartrate 45 mcg/actuation HFA aerosol inhaler 2 puff inhalation Q4-6H PRN (Reason: shortness of breath or wheezing) Qty: 15 RF: 0 prednisone 20 mg tablet 40 mg PO DAILY 5 Days Qty: 10 RF: 0 ondansetron 4 mg tablet,disintegrating 4 mg PO Q8H PRN (Reason: nausea and vomiting) Qty: 20 RF: 0 Referrals: Physician,Unknown [Primary Care Provider] - 2 days [facility] Past Medical History Source: nursing notes reviewed 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
[2020-08-17 02:09] VITALS: BP 106/65; PULSE 74; RESP 18; O2SAT 100
--- NOTE | 2020-08-17 02:13 | PC.NURSE ---
RECEIVED CALL FROM LAB REGARDING OCCULT STOOL SAMPLE, STATING THAT THERE WAS NO SAMPLE SEEN ON THE CARD, ABLE TO PREFORM TEST. PROVIDER WHO PREFORMED RECTAL EXAM AND COLLECTION MADE AWARE. PROVIDER NOT MAKING A SECOND ATTEMPT FOR STOOL COLLECTION AT THIS TIME.
[2020-08-17 03:28] VITALS: BP 99/62; PULSE 68; RESP 6; TEMP 36.4; O2SAT 99
[2020-08-17 03:30] LABS: Glucose Urine UA NEG (NEG); Leukocyte Esterase Urine NEG (NEG); Nitrite Urine NEG (NEG); PH 5.5 (5.0-8.0); Specific Gravity - Urine >= 1.030 (1.005-1.025); Urine Blood NEG (NEG); Urine Ketones 15 MG/DL (NEG); Urine Protein NEG (NEG-TRACE)
[2020-08-17 03:33] LABS: Appearance Urine CLEAR; Color Urine YELLOW; UPreg QC Valid YES; Urine Pregnancy NEGATIVE (NEGATIVE)
[2020-08-17] MEDS: Lidocaine HCl Viscous 2 % 15 ML SOLUTION 10 ML MUCOUS MEM (03:52)
[2020-08-17] MEDS: Magnesium Hydrox/Alum Hydrox 30 ML ORAL.SUSP PO (03:52)
[2020-08-17] MEDS: 0.9 % Sodium Chloride 1,000 ML 999 ML IV (04:39)
[2020-08-17] MEDS: ondansetron HCL 4 MG/2 ML VIAL IVPUSH (04:39)
== END 2020-08-17 05:52 | disposition home or self-care (01) ==
PROVIDERS: Emergency Provider Student in an Organized Health Care Education/Training Program
DX: R11.2 Nausea with vomiting, unspecified (principal); F17.210 Nicotine dependence, cigarettes, uncomplicated
CPT/HCPCS: 36415; 80053; 81003; 81025; 83690; 85025; 96361; 96374; 99284; J2405